=== PATIENT | male | born 1960 | race Asian ===

== ENCOUNTER 2016-08-31 08:14 | Day surgery (SDC) | payer OTHER ==
[~2016-08-31] VITALS: Ht 165.1 cm; Wt 65.8 kg
[~2016-08-31 08:14] MED LIST: ASPI-664 PO; IBUP-1542 PO; OMEP40CA6 PO; TRAM50TA2 PO
[2016-08-31 09:21] VITALS: Ht 165.1 cm; Wt 65.8 kg
[2016-08-31] MEDS ORDERED: ZANTAC (09:25)
[2016-08-31 09:39] VITALS: BP 132/79; PULSE 55; RESP 27
[2016-08-31] MEDS ORDERED: FENTAnyl 50 MCG/ML VIAL ONE (10:20)
[2016-08-31] MEDS ORDERED: MIDAZOLAM 1 MG/ML 2 ML INJ ONE ×2 (10:20)
[2016-08-31 10:40] VITALS: BP 105/69; PULSE 58; RESP 21
--- NOTE | 2016-08-31 10:57 | GILP ---
DATE OF PROCEDURE: NAME OF PROCEDURES: 1. Esophagogastroduodenoscopy and biopsy. 2. Colonoscopy and biopsy. SURGEON: Lynda Velazquez MD PREOPERATIVE DIAGNOSES: 1. Abdominal pain. 2. Screening colonoscopy. POSTOPERATIVE DIAGNOSES 1. Gastritis with erosions. 2. Gastric mucosal biopsies were taken for Helicobacter pylori test. 3. Colonoscopy all the way to the cecum. 4. Right colon polyp was removed using the biopsy forceps. 5. Internal hemorrhoids. INDICATION FOR THE PROCEDURE: Mr. Jeancarlos Lopez is a 56-year-old male patient who had upper ab dominal pain, not responding to therapy. He also needed screening colonoscopy. The procedures and possible complications are well explained to the patient, he understood and conse nted to the procedure. DESCRIPTION OF PROCEDURE: Under the influence of fentanyl and Versed, the gastroscope was carefully introduced into the esophagus and under direct vision, it was advanced to the stomach and through t he pylorus into the duodenal bulb and descending duodenum. FINDINGS: ESOPHAGUS: The mucosa was normal. STOMACH: The patient had gastritis with erosions. Gastric mucosal biopsies were taken for H. pylor i test. DUODENUM: Normal. The colonoscope was carefully introduced in the rectum and under direct vision, it was advanced all the way to the cecum. FINDINGS: The patient had a small polyp in the right colon and it was removed using the biopsy forc eps. The patient was noted to have internal hemorrhoids. He tolerated the procedures very well and there was no complication from the procedures. At the end of the procedures, he was awake with stable vital signs and he was discharged home to the care of h is family. IMPRESSION: 1. Gastritis with erosions. 2. Gastric mucosal biopsies were taken for Helicobacter pylori test. 3. Small right colon polyp was removed using the biopsy forceps. 4. Internal hemorrhoids. PLAN: 1. Continue omeprazole and Zantac. 2. Await histopathology reports. 3. Next screening colonoscopy in 5 to 10 years depending upon histopathology of colon polyps. Dictated By: LYNDA AVALOS/ISABEL Conf#: [id number] DID#: [id number]
== END 2016-08-31 11:12 | disposition home or self-care (01) ==
LOC: GIL 08:14
PROVIDERS: ATTEND Internal Medicine Gastroenterology
DX: Z12.11 Encounter for screening for malignant neoplasm of colon (principal); K63.5 Polyp of colon; K29.60 Other gastritis without bleeding; K64.8 Other hemorrhoids
CPT/HCPCS: 43239; 45380; 87081; 88305; J2250; J3010; Z7610

== ENCOUNTER 2017-03-12 10:07 | Emergency (ER) | payer OTHER ==
[~2017-03-12] VITALS: Ht 167.6 cm; Wt 70.5 kg
[~2017-03-12 10:07] MED LIST changes: -IBUP-1542 PO; -TRAM50TA2 PO; +ZANTAC
[2017-03-12 10:10] VITALS: Ht 167.6 cm; Wt 70.5 kg
[2017-03-12] MEDS ORDERED: MENT2.7L MM (10:57)
[2017-03-12] MEDS ORDERED: SODI126M NASAL (10:57)
--- NOTE | 2017-03-12 11:46 | ERD ---
ER Documentation Chief Complaint Date/Time DATE: 03/12/17 TIME: 11:41 Chief Complaint micki cough x 6 days HPI 56-year-old male is complaining of nonproductive cough 6 days. Patient has nasal congestion, with clear nasal discharge. He also complains of sore throat. Denies fever or chills. Denies shortness of breath. Denies itchy nose or itchy and watery eyes. Taken DayQuil without much improvement. ROS All systems reviewed and are negative except as per history of present illness. Medications Home Meds Active Scripts Sodium Chloride (Saline Nasal Mist) 126 Ml Mist, 2 SPRAY NASAL Q2H Y for NASAL CONGESTION, #1 BOTTLE Prov:RUPA KNOX. LEGISLATORS 03/12/17 Menthol (COUGH DROPS) 2.7 Mg Lozenge, 2.7 MG MM q1-2 hrs Y for COUGH, #30 LOZENGE Prov:RUPA KNOX. LEGISLATORS 03/12/17 Aspirin* (Aspirin* EC) 81 Mg Tablet., 81 MG PO DAILY, #30 TAB Prov:CALIXTO VELAZQUEZ MD 03/16/14 Reported Medications [Zantac] No Conflict Check 08/31/16 Omeprazole* (Omeprazole*) 40 Mg Capsule.dr, 40 MG PO DAILY, CAP 03/14/14 Allergies Allergies: Coded Allergies: No Known Allergy (Unverified , 12/22/14) PMhx/Soc GERD History of Surgery: No Anesthesia Reaction: No Hx Neurological Disorder: No Hx Respiratory Disorders: No Hx Cardiac Disorders: No Hx Psychiatric Problems: No Hx Miscellaneous Medical Probl: No Hx Alcohol Use: No Hx Substance Use: No Hx Tobacco Use: No Smoking Status: Never smoker Physical Exam Vitals Vital Signs Date Time Temp Pulse Resp B/P Pulse Ox O2 Delivery O2 Flow Rate FiO2 03/12/17 10:10 97.7 66 19 124/81 97 Physical Exam General: Well-developed, well-nourished, conscious and coherent, in no distress Skin: Warm and dry without rash, good texture and turgor Head: Normocephalic without evidence of trauma Eyes: Sclera and conjunctivae normal; pupils equal, round, and reactive to light; extraocular movements are intact Nose/Face: Nasal mucosa erythematous and swollen. Mouth/throat: Mucous membranes are moist. Posterior pharynx mildly erythematous without exudates Neck: Supple without meningismus or adenopathy. Carotids are equal. Trachea midline. No bruits or JVD Chest: Normal AP diameter. Good expansion without retractions. Nontender. Lungs are clear to auscultate bilaterally with good tidal volume Heart: Regular rate and rhythm. No murmur, rub, or gallops heard Extremities: Full range of motion. Good strength bilaterally. No clubbing, cyanosis, or edema. Peripheral pulses are intact. Sensation intact Neuro: Alert and oriented 4, GCS 15. Cranial nerves grossly intact. Motor and sensory exams nonfocal. Moves all extremities. Speech clear. Gait normal Procedures/MDM Patient is afebrile, in no respiratory distress. Lungs are clear to auscultate. I doubt that patient has pneumonia or bronchitis. Likely patient's symptoms are result of viral upper respiratory infection. Patient appears well, stable for discharge and outpatient management. Medical decision making shared with patient and family. Education provided to patient and family. Patient and family expressed understanding of the plan. Medications on discharge: Saline nasal spray, cough drops, Tylenol. Follow-up: Primary care provider in 2-3 days or return to ED if worse. Disclaimer: Inadvertent spelling and grammatical errors are likely due to EHR/ dictation software use and do not reflect on the overall quality of patient care. Also, please note that the electronic time recorded on this note does not necessarily reflect the actual time of the patient encounter. Departure Diagnosis: Primary Impression: URI (upper respiratory infection) Condition: Stable Patient Instructions: Adult Self-Care for Colds Additional Instructions: Call your primary care doctor TOMORROW for an appointment during the next 2-3 days.See the doctor sooner or return here if your condition worsens before your appointment time. RUPA KNOX NP Mar 12, 2017 11:46
== END 2017-03-12 11:40 | disposition home or self-care (01) ==
LOC: FTE 10:07
DX: J06.9 Acute upper respiratory infection, unspecified (principal); Z79.82 Long term (current) use of aspirin
CPT/HCPCS: 99283

== ENCOUNTER 2017-04-09 10:53 | Emergency (ER) | payer OTHER ==
[~2017-04-09] VITALS: Wt 78.0 kg
[~2017-04-09 10:53] MED LIST changes: +MENT2.7L MM; +SODI126M NASAL
--- NOTE | 2017-04-09 13:13 | RADRPT ---
PROCEDURE: Chest x-ray CLINICAL INDICATION: Cough TECHNIQUE: Chest single view COMPARISON: 03/14/2014 FINDINGS: The heart is normal in size. The pulmonary vessels are normal in caliber. The lungs are clear. Th e costophrenic angles are sharp. The visualized bony thorax is unremarkable. IMPRESSION: No acute cardiopulmonary disease. No interval change RPTAT: HH .Valentin Garza MD, Date Time Electronically viewed and signed by .Valentin Garza MD, MD on 04/09/2017 13:12 .W/
[2017-04-09] MEDS ORDERED: BENZ200C43 PO (13:31)
--- NOTE | 2017-04-09 18:35 | ERD ---
ER Documentation Chief Complaint Chief Complaint COUGH 1 1/2 MOS HPI Patient is a 57-year-old male presenting to the emergency department with complaints of cough intermittently for 1.5 months. He initially had the flu which turned into a cough. He took [id number] medications with no relief. Cough is productive. He denies hemoptysis. The patient did visit his primary care physician for this who prescribed him Medrol Dosepak and Ventolin with only mild relief. He denies recent travel, exposure to TB, night sweats, fevers, chills or other symptoms at this time ROS All systems reviewed and are negative except as per history of present illness. Medications Home Meds Active Scripts Benzonatate* (Benzonatate*) 200 Mg Capsule, 200 MG PO TID Y for COUGH, #20 CAP Prov:CALIXTO RICHARDSON PA-C 04/09/17 Sodium Chloride (Saline Nasal Mist) 126 Ml Mist, 2 SPRAY NASAL Q2H Y for NASAL CONGESTION, #1 BOTTLE Prov:RUAP KNOX. MASS SPECTROMETRY SPECIALIST 03/12/17 Menthol (COUGH DROPS) 2.7 Mg Lozenge, 2.7 MG MM q1-2 hrs Y for COUGH, #30 LOZENGE Prov:RUPA KNOX. MASS SPECTROMETRY SPECIALIST 03/12/17 Aspirin* (Aspirin* EC) 81 Mg Tablet., 81 MG PO DAILY, #30 TAB Prov:CALIXTO VELAZQUEZ MD 03/16/14 Reported Medications [Zantac] No Conflict Check 08/31/16 Omeprazole* (Omeprazole*) 40 Mg Capsule., 40 MG PO DAILY, CAP 03/14/14 Allergies Allergies: Coded Allergies: No Known Allergy (Unverified , 12/22/14) PMhx/Soc History of Surgery: No Anesthesia Reaction: No Hx Neurological Disorder: No Hx Respiratory Disorders: No Hx Cardiac Disorders: No Hx Psychiatric Problems: No Hx Miscellaneous Medical Probl: No Hx Alcohol Use: No Hx Substance Use: No Hx Tobacco Use: No Physical Exam Vitals Vital Signs Date Time Temp Pulse Resp B/P Pulse Ox O2 Delivery O2 Flow Rate FiO2 04/09/17 10:57 98.1 83 18 123/ 96 Physical Exam Const: Nontoxic, well-appearing male in no acute distress. Head: Atraumatic Eyes: Normal Conjunctiva ENT: Normal External Ears, Nose and Mouth. Neck: Full range of motion..~ No meningismus. Resp: Clear to auscultation bilaterally. No crackles. No wheezing. No rhonchi. Cardio: Regular rate and rhythm, no murmurs Skin: No petechiae or rashes Neur: Awake and alert Psych: Normal Mood and Affect Procedures/MDM 57-year-old male presents to the emergency department with complaints of cough. Physical examination was essentially unremarkable. Vital signs are stable. Patient is in no respiratory distress. Auscultation of the lungs essentially unremarkable. Patient's cough is likely secondary to chronic cause. Low suspicion for pneumonia, pulmonary embolism, pneumothorax, aortic dissection, or other cardiopulmonary emergencies. Chest x-ray showed no acute abnormalities. Patient is stable for discharge with prescription for benzonatate. He was advised to follow-up with his primary care physician with possible referral to specialist. He is advised to return immediately for any new or worsening symptoms. PROCEDURE: Chest x-ray CLINICAL INDICATION: Cough TECHNIQUE: Chest single view COMPARISON: 03/14/2014 FINDINGS: The heart is normal in size. The pulmonary vessels are normal in caliber. The lungs are clear. The costophrenic angles are sharp. The visualized bony thorax is unremarkable. IMPRESSION: No acute cardiopulmonary disease. No interval change RPTAT: HH .Valentin Garza MD, MD Date Time Electronically viewed and signed by .Valentin Garza MD, on 04/09/2017 13:12 Departure Diagnosis: Primary Impression: Cough Condition: Fair Patient Instructions: Cough, Chronic, Uncertain Cause, (Adult) Additional Instructions: Follow up with your PCP within the next 1-3 days for a repeat evaluation. If you require a referral to a specialist, your Primary Care Provider may be able to provide this for you. In most patient cases, a referral is not required. If you have further questions regarding this matter, please ask your Primary Care Provider. Return the the emergency department immediately if symptoms worsen or change. If you have any questions regarding medications, ask your pharmacist or us before you leave. If any adverse reactions, occur while taking your medications, discontinue the treatment and return to the emergency department immediately. If any new or worsening symptoms, uncontrolled fevers, or other unexplained symptoms occur, return to the emergency department immediately. Take your medications as directed, and complete the entire course of treatment. CALIXTO RICHARDSON PA-C Apr 09, 2017 18:35
== END 2017-04-09 13:48 | disposition home or self-care (01) ==
LOC: FTE 10:53
DX: R05 Cough (principal); Z79.82 Long term (current) use of aspirin
CPT/HCPCS: 71010; Z7502

== ENCOUNTER 2017-06-11 07:59 | Inpatient (IN) | payer OTHER ==
[~2017-06-11] VITALS: Ht 160 cm; Wt 67.1 kg
[~2017-06-11 07:59] MED LIST changes: +BENZ200C43 PO
--- NOTE | 2017-06-11 08:36 | ERD ---
ER Documentation Chief Complaint Chief Complaint COUGH X 3 MONTHS (SERGIO DOSHI PA-C) HPI Patient is a 57-year-old male with no past medical history presents to the ED for concerns of a chronic cough 3 months. Patient states the cough is dry in nature. Patient denies any fevers, chills, nausea, vomiting, chest pain, shortness of breath or LOC. Patient denies any weight loss, hemoptysis or sputum production. 2 months ago the patient did travel to [facility] where he tried numerous antibiotics and cough syrups which have not alleviated to his symptoms. Patient does not smoke. Patient denies any epigastric pain or heartburn sensation. (SERGIO DOSHI PA-C) ROS All systems reviewed and are negative except as per history of present illness. (SERGIO DOSHI PA-C) Medications Home Meds Active Scripts Benzonatate* (Benzonatate*) 200 Mg Capsule, 200 MG PO TID Y for COUGH, #20 CAP Prov:CALIXTO RICHARDSON PA-C 04/09/17 Sodium Chloride (Saline Nasal Mist) 126 Ml Mist, 2 SPRAY NASAL Q2H Y for NASAL CONGESTION, #1 BOTTLE Prov:RUPA KNOX. CERTIFIED PERFORMANCE TECHNOLOGIST 03/12/17 Menthol (COUGH DROPS) 2.7 Mg Lozenge, 2.7 MG MM q1-2 hrs Y for COUGH, #30 LOZENGE Prov:RUPA KNOX. CERTIFIED PERFORMANCE TECHNOLOGIST 03/12/17 Aspirin* (Aspirin* EC) 81 Mg Tablet., 81 MG PO DAILY, #30 TAB Prov:CALIXTO VELAZQUEZ MD 03/16/14 Reported Medications Alprazolam* (Alprazolam*) 0.5 Mg Tablet, 0.5 MG PO IN THE MORNING Y for ANXIETY , TAB 06/12/17 [Zantac] No Conflict Check 08/31/16 Omeprazole* (Omeprazole*) 40 Mg Capsule., 40 MG PO DAILY, CAP 03/14/14 Allergies Allergies: Coded Allergies: No Known Allergy (Unverified , 12/22/14) PMhx/Soc History of Surgery: No Anesthesia Reaction: No Hx Neurological Disorder: No Hx Respiratory Disorders: No Hx Cardiac Disorders: No Hx Psychiatric Problems: No Hx Miscellaneous Medical Probl: No Hx Alcohol Use: No Hx Substance Use: No Hx Tobacco Use: No (SERGIO DOSHI PA-C) Physical Exam Vitals Vital Signs Date Time Temp Pulse Resp B/P Pulse Ox O2 Delivery O2 Flow Rate FiO2 06/11/17 13:18 68 17 139/84 98 Room Air 06/11/17 11:04 74 17 132/93 97 Room Air 06/11/17 08:02 97.7 75 18 109/77 97 (ROSALIA PATTERSON DO) Physical Exam GENERAL: Well-developed, well-nourished male. Appears in no acute distress. HEAD: Normocephalic, atraumatic. EYES: Pupils are equally reactive bilaterally. EOMs grossly intact. No conjunctival erythema. ENT: Moist mucous membranes. No uvula deviation. No kissing tonsils. NECK: Supple. No meningismus. Normal range of motion of the neck. LUNG: Clear to auscultation bilaterally. No rhonchi, wheezing, rales or coarse breath sounds. No abdominal retractions, nasal flaring, no tripoding. HEART: Regular rate and rhythm. No murmurs, rubs or gallops. EXTREMITIES: Equal pulses bilaterally. No peripheral clubbing, cyanosis or edema. No unilateral leg swelling. NEUROLOGIC: Alert and oriented. Moving all four extremities without any difficulty. Normal speech. Steady gait. SKIN: Normal color. Warm and dry. No rashes or lesions. (SERGIO DOSHI PA-C) Result Diagram: 06/12/17 0652 06/12/17 0652 Results 24 hrs Laboratory Tests Test 06/11/17 11:00 White Blood Count 8.410^3/ul Red Blood Count 4.2710^6/ul Hemoglobin 13.3g/dl Hematocrit 40.3% Mean Corpuscular Volume 94.4fl Mean Corpuscular Hemoglobin 31.1pg Mean Corpuscular Hemoglobin Concent 33.0g/dl Red Cell Distribution Width 11.8% Platelet Count 29727^3/UL Mean Platelet Volume 9.9fl Neutrophils % 66.5% Lymphocytes % 20.6% Monocytes % 7.1% Eosinophils % 4.6% Basophils % 0.8% Nucleated Red Blood Cells % 0.0/100WBC Neutrophils # 5.610^3/ul Lymphocytes # 1.710^3/ul Monocytes # 0.610^3/ul Eosinophils # 0.410^3/ul Basophils # 0.110^3/ul Nucleated Red Blood Cells # 0.010^3/ul Sodium Level 141mmol/L Potassium Level 3.9mmol/L Chloride Level 106mmol/L Carbon Dioxide Level 26mmol/L Anion Gap 13 Blood Urea Nitrogen 14mg/dl Creatinine 0.90mg/dl Glucose Level 97mg/dl Calcium Level 9.2mg/dl Total Bilirubin 0.3mg/dl Direct Bilirubin 0.00mg/dl Indirect Bilirubin 0.3mg/dl Aspartate Amino Transf (AST/SGOT) 34IU/L Alanine Aminotransferase (ALT/SGPT) 47IU/L Alkaline Phosphatase 74IU/L Total Protein 7.5g/dl Albumin 3.7g/dl Globulin 3.80g/dl Albumin/Globulin Ratio 0.97 (ROSALIA PATTERSON DO) Procedures/MDM ED COURSE: The patient was stable throughout ED course. I kept the patient and/or family informed of laboratory and diagnostic imaging results throughout the ED course. DIAGNOSTIC IMAGING: Read by radiologist. Patient: MARVIN MORA : 1960 Age: 57 Sex: M MR #: [id number] DOS: 06/11/17 0825 Ordering MD: SERGIO DOSHI PA-C Location: [facility] Room/Bed: AMENDMENT: 06/11/2017 9:49:08 AM Julianne Murphy due to typographical error. The ascending aorta measures up to 4.1 cm in the greatest dimension and the posterior aortic arch measures up to 3.5 cm of its greatest dimension. A call report was made to Sergio Doshi Pa-C at 06/11/2017 9:49:05 AM PROCEDURE: CT chest without contrast. CLINICAL INDICATION: Cough TECHNIQUE: CT scan of the chest without contrast was performed on a multi- slice CT scanner. The patient was scanned without administration of intravenous contrast. Coronal and sagittal reformatted images were obtained from the axial source images. One or more of the following dose reduction techniques were used: Automated exposure control. Adjustment of the mA and/or kV according to patient size. Use of iterative reconstruction technique. DICOM images are available DLP vol 468.47 mGy CTDI 11.1 mGy-cm COMPARISON: None. FINDINGS: Lungs: There is a focus of peribronchial nodular ground-glass opacity seen within the lateral left lung base. The remainder of the lungs are otherwise clear. There is a focus of bronchiectasis seen within the right middle lobe near the base. Trace basilar scarring is present. There is no effusion or pneumothorax. Cardiovascular: There is ascending aortic aneurysmal enlargement measuring 4.2 cm. There is also an area of aneurysmal enlargement of the posterior aortic arch that measures 73.5 5 cm. Lymph nodes: There are no enlarged axillary or mediastinal lymph nodes. Musculoskeletal: Degenerative changes are seen within the thoracic spine and shoulders with no acute osseous abnormality. Upper abdomen: There is no acute upper abdominal abnormality. Other: None IMPRESSION: Peribronchial nodular opacities seen in the left lower lobe that likely represents a focus of bronchiolitis. Fungal disease are mycobacterium could be included in the differential for this. There is a small focus of right middle lobe basilar bronchiectasis which could represent sequelae of prior inflammation. There is aneurysmal enlargement of the ascending aorta and the posterior aortic arch. RPTAT: AA .Julianne Kang MD, MD Date Time Electronically viewed and signed by .Julianne Kang MD, MD on 06/11/2017 09:49 .J/ CC: SERGIO DOSHI PA-C PROCEDURES: None. MEDICAL DECISION MAKING: This is a 49-year-old male who presents ED for concerns of a chronic cough 3 months. Patient has been here numerous times for his cough. Patient states he started numerous antibiotics as well as OTC medications with no alleviation of his cough. Patient did recently travel to [facility]. Patient denies any weight loss, night sweats, hemoptysis, sputum production, fevers or chills. Vital signs were reviewed. Patient was afebrile. Patient was not hypoxic. ENT exam was normal. Lung exam was normal. Given the patient has had numerous negative chest x-rays, CT scan of the chest was obtained. CT chest showed Peribronchial nodular opacities seen in the left lower lobe that likely represents a focus of bronchiolitis. Fungal disease are mycobacterium could be included in the differential for this. There is a small focus of right middle lobe basilar bronchiectasis which could represent sequelae of prior inflammation. There is aneurysmal enlargement of the ascending aorta and the posterior aortic arch. I discussed the patient's case and imaging studies with my supervising physician Dr. Patterson, who advised me to order blood work in the patient. CBC showed no evidence of systemic infection or severe anemia. CMP showed no evidence of electrolyte abnormalities, severe acidosis, alkalosis, renal failure , or liver disease. Given that patient did report travel to [facility], QuantiFERON gold TB screening was also ordered. Results are pending. Pertussis swab was also sent. Results pending. Patient was transferred to the ED 1 for further management and isolation precautions. Given patient's history of recent foreign travel and ongoing cough, patient will be admitted at this time to rule out TB given concerns on CT imaging. Dr. Patterson, supervising MD spoke with admitting physician/team. Patient was stable throughout the ED course. Disclaimer: Inadvertent spelling and grammatical errors are likely due to EHR/ dictation software use and do not reflect on the overall quality of patient care. Also, please note that the electronic time recorded on this note does not necessarily reflect the actual time of the patient encounter. (SERGIO DOSHI PA-C) Patient was moved to ED 1 and in isolation for possible Mycobacterium. Spoke with Dr. Leonel Jane will admit the patient for TB rule out. Condition: Stable Disposition: Admission: Diagnosis chronic cough, fungal or mycobacterium pulmonary infection (ROSALIA PATTERSON DO) Departure Diagnosis: Primary Impression: Cough Condition: Stable Patient Instructions: Cough, Chronic, Uncertain Cause, (Adult) Referrals: CAROLE GRANDE (PCP) ROBBIE ALAS MD,TARA MATSON,SULTANA COPPOLA MD, MD, SAEID MD VADGAMA,AMY Diehl MD, [facility] Additional Instructions: Follow-up with the heater worker on an outpatient basis. Pertussis swab pending. He will be contacted if it is positive. Call your primary care doctor TOMORROW for an appointment during the next 1-2 days.See the doctor sooner or return here if your condition worsens before your appointment time. SERGIO DOSHI PA-C Jun 11, 2017 08:36 ROSALIA PATTERSON DO Jun 11, 2017 14:01
--- NOTE | 2017-06-11 09:28 | RADRPT ---
AMENDMENT: 06/11/2017 9:49:08 AM Julianne Murphy due to typographical error. The ascending aorta measures up to 4.1 cm in the greatest dimension and the posterior aortic arch measures up to 3.5 cm of its greatest dimension. A call report was made to Pastora Doshi Pa-C at 06/11/2017 9:49:05 AM PROCEDURE: CT chest without contrast. CLINICAL INDICATION: Cough TECHNIQUE: CT scan of the chest without contrast was performed on a multi-slice CT scanner. [facility] of [facility] contrast. Coronal and sagittal reformatted images were obtained from the axial source images. One or more of the following dose reduction techniques were used: Automated exposure control. Adjustment of the mA and/or kV according to patient size. Use of iterative reconstruction technique. DICOM images are available DLP vol 468.47 mGy CTDI 11.1 mGy-cm COMPARISON: None. FINDINGS: Lungs: There is a focus of peribronchial nodular ground-glass opacity seen within the lateral left l kay base. The remainder of the lungs are otherwise clear. There is a focus of bronchiectasis seen wi thin the right middle lobe near the base. Trace basilar scarring is present. There is no effusion or pneumothorax. Cardiovascular: There is ascending aortic aneurysmal enlargement measuring 4.2 cm. There is also an area of aneurysmal enlargement of the posterior aortic arch that measures 73.5 5 cm. Lymph nodes: There are no enlarged axillary or mediastinal lymph nodes. Musculoskeletal: Degenerative changes are seen within the thoracic spine and shoulders with no acute osseous abnormality. Upper abdomen: There is no acute upper abdominal abnormality. Other: None IMPRESSION: Peribronchial nodular opacities seen in the left lower lobe that likely represents a focus of bronch iolitis. Fungal disease are mycobacterium could be included in the differential for this. There is a small focus of right middle lobe basilar bronchiectasis which could represent sequelae of prior inflammation. There is aneurysmal enlargement of the ascending aorta and the posterior aortic arch. RPTAT: AA .Julianne Kang MD, Date Time Electronically viewed and signed by .Julianne Kang MD, MD on 06/11/2017 09:49 .Elian/
[2017-06-11 12:00] LABS: BASOPHIL # 0.1 10^3/ul (0.0-0.1); BASOPHILS % 0.8 % (0.0-2.0); EOSINOPHILS # 0.4 10^3/ul (0.0-0.5); EOSINOPHILS % 4.6 % (0.0-7.0); HEMATOCRIT 40.3 % (42.0-52.0); HEMOGLOBIN 13.3 g/dl (14.0-18.0); LYMPHOCYTES # 1.7 10^3/ul (0.8-2.9); LYMPHOCYTES % 20.6 % (15.0-51.0); MEAN CORPUSCULAR HEMOGLOBIN 31.1 pg (29.0-33.0); MEAN CORPUSCULAR VOLUME 94.4 fl (82.0-101.0); MEAN PLATELET VOLUME 9.9 fl (7.4-10.4); MONOCYTE # 0.6 10^3/ul (0.3-0.9); MONOCYTES % 7.1 % (0.0-11.0); NEUTROPHIL # 5.6 10^3/ul (1.6-7.5); NEUTROPHILS % 66.5 % (39.0-77.0); PLATELET COUNT 213 10^3/UL (140-415); RED BLOOD COUNT 4.27 10^6/ul (4.70-6.10); RED CELL DISTRIBUTION WIDTH 11.8 % (11.5-14.5); WHITE BLOOD COUNT 8.4 10^3/ul (4.8-10.8)
[2017-06-11 12:35] LABS: ALBUMIN 3.7 g/dl (3.3-4.9); ALBUMIN/GLOBULIN RATIO 0.97; BILIRUBIN,INDIRECT 0.3 mg/dl (0-1.1); BILIRUBIN,TOTAL 0.3 mg/dl (0.2-1.3); CALCIUM 9.2 mg/dl (8.4-10.2); CREATININE 0.9 mg/dl (0.61-1.24); POTASSIUM 3.9 mmol/L (3.5-5.1); TOTAL PROTEIN 7.5 g/dl (6.1-8.1)
[2017-06-11] MEDS ORDERED: morphine 2 MG INJ IV PRN (14:30)
[2017-06-11] MEDS ORDERED: ALBUTEROL/IPRATROPIUM (NEB) 3 ML AMP HHN PRN (14:30)
[2017-06-11] MEDS ORDERED: NACL 0.9% 3 ML SYG IV SCH (14:30)
[2017-06-11] MEDS ORDERED: LORAZEPAM 0.5 MG TAB PO PRN (14:30)
[2017-06-11] MEDS ORDERED: ONDANSETRON 4 MG INJ IV PRN (14:30)
[2017-06-11] MEDS ORDERED: BISACODYL (EC) 5 MG TAB PO PRN (14:30)
[2017-06-11] MEDS ORDERED: LEVOFLOXACIN 500MG/D5W (PMX) 100 ML IVPB SCH (14:30)
[2017-06-11] MEDS ORDERED: ACETAMINOPHEN 325 MG TAB PO PRN (14:30)
--- NOTE | 2017-06-11 14:35 | HP ---
Date/Time of Note Date/Time of Note DATE: 06/11/17 TIME: 14:22 Assessment/Plan VTE Prophylaxis VTE Prophylaxis Intervention: heparin, SCD's Assessment/Plan Chief Complaint/Hosp Course Objective Physical exam General: Patient is laying in bed and answers questions appropriately Mentation: Patient is alert and oriented 4, Head: Normocephalic atraumatic Eyes: EOMI, pupils reactive to light Neck: Supple, nontender, midline Respiratory: Clear to auscultation bilaterally Cardiovascular: regular rate, no obvious murmurs Gastrointestinal: non-tender to palpation, bowel sounds heard. Neurological: Moves all extremities spontaneously Skin: No new skin lesions Assessment and plan Cough -Peribronchial nodular opacities per CT, fungal versus Mycobacterium -Patient admitted for TB rule out -We will start Levaquin, ID has been consulted -Pulmonology has also been consulted -Bronchiolitis, duo nebs for now -QuantiFERON and AFB pending Aortic aneurysm -Incidental finding, will order CT angiography for better studies Disposition -Pending ID and pulmonology consult, TB precautions. Problems: HPI/ROS Admit Date/Time Admit Date/Time Hx of Present Illness Patient is a 57-year-old [facility] male who presents with a 3-1/2 month history of cough. Patient states that this started out of nowhere and patient stated that he initially got antibiotic such as azithromycin approximately 3 and half months ago by his family practitioner. Patient took medication and the cough did not resolve. Since that time patient also went to [facility] where the cough continued and he also saw a practitioner in [facility] and was given additional antibiotics with no resolution of cough. Patient denies any purulent sputum and denies any hemoptysis. Patient states that there is no difference between night and day of chronic cough nor it being inside or outside. Patient denies being sick at this time and has no acute complaints. Patient denies chest pain, shortness breath, nausea, vomiting, abdominal pain, debility. PMH: None PSH: None Social: Denies smoking drinking or drugs Meds: None PMH/Family/Social Social History Smoking Status: Never smoker Exam/Review of Systems Vital Signs Vitals Vital Signs Date Time Temp Pulse Resp B/P Pulse Ox O2 Delivery O2 Flow Rate FiO2 06/11/17 13:18 68 17 139/84 98 Room Air 06/11/17 08:02 97.7 Labs Result Diagram: 06/11/17 1100 06/11/17 1100 Medications Medications Current Medications Lorazepam (Ativan) 0.5 mg Q8H PRN PO ANXIETY; Start 06/11/17 at 14:30; Status UNV Ondansetron HCl (Zofran Inj) 4 mg Q6H PRN IV NAUSEA AND/OR VOMITING; Start at 14:30; Status UNV Acetaminophen (Tylenol Tab) 650 mg Q6H PRN PO PAIN LEVEL 1-3 OR FEVER; Start 06/11/17 at 14:30; Status UNV Acetaminophen/ Hydrocodone Bitart ([place] (5/325)) 1 tab Q6H PRN PO PAIN LEVEL 4 -6; Start 06/11/17 at 14:30; Status UNV Morphine Sulfate (morphine) 2 mg Q4H PRN IV PAIN LEVEL 7-10; Start 06/11/17 at 14:30; Status UNV Bisacodyl (Dulcolax) 5 mg DAILY PRN PO CONSTIPATION; Start 06/11/17 at 14:30; Status UNV Heparin Sodium (Porcine) 5000 unit 5,000 unit Q8 SC ; Start 06/11/17 at 22:00; Status UNV Levofloxacin/ Dextrose (Levaquin 500mg/ D5W 100 ml (Pmx)) 100 ml @ 100 mls/hr Q24H IVPB ; Start 06/11/17 at 14:30; Status UNV MORA FELICIANO Jun 11, 2017 14:34
[2017-06-11] MEDS ORDERED: LEVOFLOXACIN 500MG/D5W (PMX) 100 ML IVPB ONE (14:36)
[2017-06-11] MEDS ORDERED: SOD CHLORIDE 0.9% 100 ML ONE (14:38)
[2017-06-11] MEDS ORDERED: IOHEXOL 100 ML ONE (14:38)
[2017-06-11 15:50] VITALS: TEMP 98.8
[2017-06-11 16:15] VITALS: Ht 160 cm; Wt 67.1 kg
[2017-06-11 19:35] VITALS: BP 103/72; PULSE 81; RESP 20
--- NOTE | 2017-06-11 20:38 | CONS ---
DATE OF ADMISSION: 06/11/2017 DATE OF CONSULTATION: 06/11/2017 TYPE OF CONSULTATION: Infectious Disease. REASON FOR CONSULTATION: Antibiotic management. HISTORY OF PRESENT ILLNESS: Jeancarlos Lopez is a 57-year-old male from [facility] who presents w ith a 3-1/2 month history of cough. The patient initially was on antibiotics such as azithromycin a pproximately 3-1/2 months ago by his family practitioner. The cough; however, did not resolve. He also went to [facility] where the cough continued and saw the practitioner and was given additional antibiotics with no resolution of cough. The patient denies purulent sputum. He does not feel sick , has no acute complaints. He denies debility, abdominal pain. On admission, his white count is 8. 4, H and H of 13.3 and 40.3, platelet count 213,000. BUN and creatinine 14/0.9, glucose of 97. PAST MEDICAL HISTORY: Operations: None. FAMILY HISTORY: Noncontributory. SOCIAL HISTORY: He does not smoke, drink or abuse drugs. ALLERGIES: NONE TO PENICILLIN, SULFA OR FOODS. MEDICATIONS: Per chart. REVIEW OF SYSTEMS: Noncontributory. PHYSICAL EXAMINATION: GENERAL: The patient is a well-developed, well-nourished male who is alert, responsive, in no acute distress. VITAL SIGNS: Stable. He is afebrile. SKIN: Without generalized rash. HEENT: Within normal limits. NECK: Supple. LYMPH NODES: None palpable. LUNGS: Clear. Decreased breath sounds at the bases. HEART: Without murmur or gallop. ABDOMEN: Soft, nontender, without organosplenomegaly or masses. EXTREMITIES: Without cyanosis, clubbing, or edema. RECTAL AND GENITAL: Deferred. NEUROLOGIC: No focal neurological abnormalities. As noted, his white count was 8.[address] scan of the chest was performed. IMPRESSION: Peribronchial nodular opacities seen in the left lower lobe that likely represent bronc hiolitis. Fungal disease or mycobacterium could be included in the differential for this. There is a small focus of right middle lobe basilar bronchiectasis which could represent sequelae of prior in flammation. There is aneurysmal enlargement of the ascending aorta and posterior aortic arch. IMPRESSION AND PLAN: Patient was started on Levaquin. AFB cultures and smears were ordered. A Maxime ntiFERON Gold was ordered. I think we will switch him over to cefepime since he has been on multipl e antibiotics in the past and so far have not been effective. In addition, if it was ordered, will get regular culture of the sputum. I will dictate my findings to the hospitalist. Dictated By: LUIS ANGEL GRESHAM MD, JD/ISABEL Conf#: [id number] DID#: [id number]
[2017-06-11] MEDS: CEFEPIME 1GM/50 ML (PMX) 50 ML IVPB SCH (20:50)
[2017-06-11] MEDS: HEPARIN 5,000 UNIT/0.5 ML VIAL SC SCH (21:41)
[2017-06-11] MEDS: HYDROCODONE/APAP (5/325) TAB PO PRN (21:44)
[2017-06-11] MEDS: ALBUTEROL/IPRATROPIUM (NEB) 3 ML AMP HHN SCH (21:59)
--- NOTE | 2017-06-11 22:13 | RADRPT ---
PROCEDURE: CTA Chest CLINICAL INDICATION: Aortic aneurysm. TECHNIQUE: CTA chest was performed on a multidetector high-resolution CT scanner. The patient was examined following the uncomplicated intravenous administration of 100 cc of Omnipaque 350. High-res olution thin slice coronal and sagittal imaging was obtained from the axial source images. 3-D refor matted/MIP images were not created on a separate work station. The images were reviewed on a PACS w orkstation. DICOM images are available. One or more of the following dose reduction techniques were used: Automated exposure control. Adjustment of the mA and/or kV according to patient size. Use of iterative reconstruction technique. The total exam CTDI equals 57.35 mGy, and the total exam DLP equals 342.76 mGy-cm. COMPARISON: Same day prior CT. FINDINGS: CTA chest: There is aneurysmal dilatation of the sinus of Valsalva measuring 4.3 cm. There is ectasia of the as cending thoracic aorta extending into the aortic arch and proximal descending thoracic aorta. Proxim al descending thoracic aorta measures 3.6 cm. No aortic dissection. There are no filling defects or vascular cutoff to indicate pulmonary embolus. Pulmonary arteries ar e normal in size. CT chest: The heart is normal in size. No pericardial effusion. There is no pathologically enlarged mediastinal, hilar, or axillary lymph nodes by CT size criteria. There are a few nonspecific sub centimeter mediastinal lymph nodes. The central airways are patent. Stable nodular opacities noted in the left lower lobe. There is no pleural effusion. There is no pneumothorax. Images through the upper abdomen reveal no significant abnormalities. No suspicious or aggressive bone lesions. IMPRESSION: 1. 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 Ectasia of the remaining asce nding thoracic aorta extending into the aortic arch and proximal descending thoracic aorta. Proximal descending thoracic aorta measures 3.6 cm. No aortic dissection. 2. No evidence of pulmonary embolus. 3. Stable nodular opacities noted in the left lower lobe, likely infectious/inflammatory. RPTAT: [facility] Physician [place] Date Time Electronically viewed and signed by Alejandro Diop Physician on 06/11/2017 22:13 PH/
[2017-06-12] MEDS ORDERED: ALPR0.5T6 PO (00:49)
[2017-06-12 01:20] VITALS: BP 102/80; PULSE 80; RESP 18
[2017-06-12] MEDS: HEPARIN 5,000 UNIT/0.5 ML VIAL SC SCH ×3 (05:43→21:04)
[2017-06-12] MEDS: ALBUTEROL/IPRATROPIUM (NEB) 3 ML AMP HHN SCH ×3 (07:31→19:44)
[2017-06-12 07:32] LABS: BASOPHIL # 0.1 10^3/ul (0.0-0.1); EOSINOPHILS # 0.4 10^3/ul (0.0-0.5); HEMOGLOBIN 13.3 g/dl (14.0-18.0); LYMPHOCYTES # 2.5 10^3/ul (0.8-2.9); LYMPHOCYTES % 39.6 % (15.0-51.0); MEAN CORPUSCULAR HGB CONC 32.4 g/dl (32.0-37.0); MEAN CORPUSCULAR VOLUME 95.6 fl (82.0-101.0); MEAN PLATELET VOLUME 9.4 fl (7.4-10.4); MONOCYTE # 0.6 10^3/ul (0.3-0.9); MONOCYTES % 9.7 % (0.0-11.0); NEUTROPHIL # 2.7 10^3/ul (1.6-7.5); NEUTROPHILS % 42.5 % (39.0-77.0); PLATELET COUNT 227 10^3/UL (140-415); RED BLOOD COUNT 4.29 10^6/ul (4.70-6.10); RED CELL DISTRIBUTION WIDTH 11.9 % (11.5-14.5); WHITE BLOOD COUNT 6.3 10^3/ul (4.8-10.8)
[2017-06-12 07:36] VITALS: BP 104/74; PULSE 69; RESP 18
[2017-06-12 08:05] LABS: ALBUMIN 3.9 g/dl (3.3-4.9); ALBUMIN/GLOBULIN RATIO 1.11; BILIRUBIN,INDIRECT 0.5 mg/dl (0-1.1); BILIRUBIN,TOTAL 0.5 mg/dl (0.2-1.3); CALCIUM 9.2 mg/dl (8.4-10.2); CREATININE 1.19 mg/dl (0.61-1.24); MAGNESIUM 2.2 mg/dl (1.7-2.5); POTASSIUM 4.1 mmol/L (3.5-5.1); TOTAL PROTEIN 7.4 g/dl (6.1-8.1)
[2017-06-12] MEDS: CEFEPIME 1GM/50 ML (PMX) 50 ML IVPB SCH (08:27)
--- NOTE | 2017-06-12 11:37 | RADRPT ---
PROCEDURE: XR Chest. CLINICAL INDICATION: Positive PPD. TECHNIQUE: Single frontal view. COMPARISON: 03/14/2014. FINDINGS: The lungs are clear. The heart size is normal. There is no pleural effusion. There is no pneumothorax. IMPRESSION: 1. No evidence of active tuberculosis. 2. Normal chest radiograph. 3. No change from 03/14/2014. RPTAT: QQ .Isaías Moya MD, MD Date Time Electronically viewed and signed by .Isaías Moya MD, MD on 06/12/2017 11:36 .R/
--- NOTE | 2017-06-12 11:37 | CONS ---
Date/Time of Note Date/Time of Note DATE: 06/12/17 TIME: 11:30 Assessment/Plan Assessment/Plan Additional Assessment/Plan CT scan chest was reviewed from yesterday which is showing very scant minimal left lower lobe infiltrate. Assessment and recommendations; 1. Patient admitted with a 3-1/2 month history of cough with very scant yellow sputum production with very minimal left lower lobe infiltrate. The findings are consistent with likely postviral bronchitis/bronchopneumonia. 2. Symptoms of cough and preceded recent travel to [facility].. Pulmonary tuberculosis is unlikely. With 3-1/2 month history one would expect significant progression of the disease without treatment. Continue current treatment. PPD has been placed. QuantiFERON gold test has been ordered as well. At this time I would recommend adding Levaquin 500 mg IV daily with Solu-Medrol 40 mg IV every 8 hours at least for 48 hours. Consultation Date/Type/Reason Admit Date/Time Date of Consultation: Jun 12, 2017 Type of Consultation: Pulmonary Reason for Consultation Pulmonary consultation requested for evaluation of chronic cough as well as left lower lobe pneumonia. Next History of presenting any; patient is a pleasant 57-year-old male who was admitted to the hospital with complaints of cough going on for the last 3-1/2 months. According to the patient he was fine until 3-1/2 months ago when he started having a hacking cough which is not exacerbated or relieved by any factors. He complains of very scant yellow sputum production. Denies any hemoptysis. Patient also had fever a few weeks ago with interval resolution. Patient denies any wheezing, sinus symptoms. But does complain of chronic acid reflux. But according to him that is not contributing to his cough. He denies any weight loss. Any night sweats. After developing cough for the last 3 and half months patient also traveled to [facility] and stayed there for a month and a half. But according to the patient the cough preceded his departure. Past medical history; 1. No history of any medical illnesses. Other than gastroesophageal reflux disease. Medications; reviewed. Allergies; none. Social history; patient quit smoking more than 30 years ago. No history of any alcohol or drug abuse. Family history; patient is , he has 4 children. No history of any illnesses in the family. 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 Review systems; denies any headache, visual changes, seizures. Any sinus symptoms or postnasal drip. Denies any dysphagia, sore throat. Any wheezing. Complains of cough as outlined above. Denies any hemoptysis. Any chest pain. Any dyspnea on exertion. Denies any shortness of breath. Denies any abdominal pain, nausea vomiting. Complains of stable acid reflux for the last several years. Reflux symptoms are not associated with episodes of coughing. Denies any edema. Weight loss. Night sweats fever or chills. General exam; middle-aged male, awake alert, currently in no distress. Several episodes of coughing were observed. Social History Smoking Status: Never smoker Exam/Review of Systems Vital Signs Vitals Vital Signs Date Time Temp Pulse Resp B/P Pulse Ox O2 Delivery O2 Flow Rate FiO2 06/12/17 07:36 97.4 69 18 104/74 100 Room Air 06/12/17 07:31 21 Intake and Output 06/11/17 06/11/17 06/12/17 15:00 23:00 07:00 Intake Total 290 ml 1000 ml Output Total 1400 ml Balance 290 ml -400 ml Exam HEENT exam; supple neck, no JVD. No lymphadenopathy. Midline trachea. No thyromegaly. Pharynx is clear. Patient has good dentition. There is no sinus tenderness. Nasal passages are normal without any evidence of rhinitis. Chest exam; clear to auscultation. S1-S2 audible, no murmurs. Regular rhythm. Abdomen exam; soft, nontender. No organomegaly. Bowel sounds audible. Extremity exam; no edema. No clubbing. Pulses 2+ bilaterally. 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 Results Result Diagram: 06/12/17 0652 06/12/17 0652 Results 24 hrs Laboratory Tests Test 06/12/17 06:52 White Blood Count 6.3 # Red Blood Count 4.29 L Hemoglobin 13.3 L Hematocrit 41.0 L Mean Corpuscular Volume 95.6 Mean Corpuscular Hemoglobin 31.0 Mean Corpuscular Hemoglobin Concent 32.4 Red Cell Distribution Width 11.9 Platelet Count 227 Mean Platelet Volume 9.4 Neutrophils % 42.5 Lymphocytes % 39.6 Monocytes % 9.7 Eosinophils % 7.0 Basophils % 1.0 Nucleated Red Blood Cells % 0.0 Neutrophils # 2.7 Lymphocytes # 2.5 Monocytes # 0.6 Eosinophils # 0.4 Basophils # 0.1 Nucleated Red Blood Cells # 0.0 Sodium Level 140 Potassium Level 4.1 Chloride Level 104 Carbon Dioxide Level 27 Anion Gap 13 Blood Urea Nitrogen 17 Creatinine 1.19 Glucose Level 101 Calcium Level 9.2 Magnesium Level 2.2 Total Bilirubin 0.5 Direct Bilirubin 0.00 Indirect Bilirubin 0.5 Aspartate Amino Transf (AST/SGOT) 33 Alanine Aminotransferase (ALT/SGPT) 46 Alkaline Phosphatase 75 Total Protein 7.4 Albumin 3.9 Globulin 3.50 H Albumin/Globulin Ratio 1.11 Medications Medications Current Medications Lorazepam (Ativan) 0.5 mg Q8H PRN PO ANXIETY; Start 06/11/17 at 14:30 Ondansetron HCl (Zofran Inj) 4 mg Q6H PRN IV NAUSEA AND/OR VOMITING; Start at 14:30 Acetaminophen (Tylenol Tab) 650 mg Q6H PRN PO PAIN LEVEL 1-3 OR FEVER; Start 06/11/17 at 14:30 Acetaminophen/ Hydrocodone Bitart ([place] (5/325)) 1 tab Q6H PRN PO PAIN LEVEL 4 -6 Last administered on 06/11/17 21:44; Admin Dose 1 TAB; Start 06/11/17 at 14:30 Morphine Sulfate (morphine) 2 mg Q4H PRN IV PAIN LEVEL 7-10; Start 06/11/17 at 14:30 Bisacodyl (Dulcolax) 5 mg DAILY PRN PO CONSTIPATION; Start 06/11/17 at 14:30 Heparin Sodium (Porcine) 5000 unit 5,000 unit Q8 SC Last administered on 05:43; Admin Dose 5,000 UNIT; Start 06/11/17 at 22:00 Cefepime HCl (Maxipime 1gm/50 ml (Pmx)) 50 ml @ 100 mls/hr Q12 IVPB Last administered on 06/12/17 08:27; Admin Dose 100 MLS/HR; Start 06/11/17 at 21: 00 Diphenhydramine HCl (Benadryl) 25 mg Q6H PRN PO ITCHING; Start 06/12/17 at 11: 00 MELANIE COYNE Jun 12, 2017 11:37
[2017-06-12] MEDS ORDERED: LEVOFLOXACIN 500MG/D5W (PMX) 100 ML IVPB SCH (12:00)
[2017-06-12] MEDS: DIPHENHYDRAMINE 25 MG CAP PO PRN ×2 (12:36→20:57)
[2017-06-12] MEDS ORDERED: METHYLPREDNISOLONE 40 MG INJ IV SCH (14:00)
[2017-06-12 14:09] VITALS: BP 102/72; PULSE 89; RESP 17
--- NOTE | 2017-06-12 17:08 | PN ---
Date/Time of Note Date/Time of Note DATE: 06/12/17 TIME: 17:02 Assessment/Plan VTE Prophylaxis VTE Prophylaxis Intervention: SCD's Lines/Catheters IV Catheter Type (from [facility]): Saline Lock Assessment/Plan Assessment/Plan 57 yo M here with 3 mos of cough in setting of travel to [facility]. Cough has not responded to multiple courses of abx. CXR unremarkable but CTA with LLL bronchiolitis. Given cough's duration, and pt's overall clinical stability over this interval, it's quite possible cough is in fact non infectious in origin. PLAN narrow abx to levoflox. No evidence of acute infiltrative process therefore no compelling indication for cefepime. Patient does not have pneumonia. empiric steroids at this point I honestly do not understand the utility of a quant gold/latent TB evaluation. The issue at hand is whether or not pt has been exposed to TB but whether or not he has active disease which at this point only sputum AFBs will tell us. Sputum AFBs in process, as well as regular respiratory culture Once sputum AFBs negative x 3 and pt is found to not have active TB he can likely be discharged with outpatient follow up will also try h2b (for GERD) and antihistamines (to r/o PND) to help treat noninfectious causes of cough 4.5 cm AAA: needs outpatient vascular follow up. BP control Exam/Review of Systems Vital Signs Vitals Vital Signs Date Time Temp Pulse Resp B/P Pulse Ox O2 Delivery O2 Flow Rate FiO2 06/12/17 14:09 98.0 89 17 102/72 97 Room Air 06/12/17 07:31 21 Intake and Output 06/11/17 06/11/17 06/12/17 15:00 23:00 07:00 Intake Total 290 ml 1000 ml Output Total 1400 ml Balance 290 ml -400 ml Results Result Diagram: 06/12/17 0652 06/12/17 0652 Results 24 hrs Laboratory Tests Test 06/12/17 06:52 White Blood Count 6.3 # Red Blood Count 4.29 L Hemoglobin 13.3 L Hematocrit 41.0 L Mean Corpuscular Volume 95.6 Mean Corpuscular Hemoglobin 31.0 Mean Corpuscular Hemoglobin Concent 32.4 Red Cell Distribution Width 11.9 Platelet Count 227 Mean Platelet Volume 9.4 Neutrophils % 42.5 Lymphocytes % 39.6 Monocytes % 9.7 Eosinophils % 7.0 Basophils % 1.0 Nucleated Red Blood Cells % 0.0 Neutrophils # 2.7 Lymphocytes # 2.5 Monocytes # 0.6 Eosinophils # 0.4 Basophils # 0.1 Nucleated Red Blood Cells # 0.0 Sodium Level 140 Potassium Level 4.1 Chloride Level 104 Carbon Dioxide Level 27 Anion Gap 13 Blood Urea Nitrogen 17 Creatinine 1.19 Glucose Level 101 Calcium Level 9.2 Magnesium Level 2.2 Total Bilirubin 0.5 Direct Bilirubin 0.00 Indirect Bilirubin 0.5 Aspartate Amino Transf (AST/SGOT) 33 Alanine Aminotransferase (ALT/SGPT) 46 Alkaline Phosphatase 75 Total Protein 7.4 Albumin 3.9 Globulin 3.50 H Albumin/Globulin Ratio 1.11 Medications Medications Current Medications Lorazepam (Ativan) 0.5 mg Q8H PRN PO ANXIETY; Start 06/11/17 at 14:30 Ondansetron HCl (Zofran Inj) 4 mg Q6H PRN IV NAUSEA AND/OR VOMITING; Start at 14:30 Acetaminophen (Tylenol Tab) 650 mg Q6H PRN PO PAIN LEVEL 1-3 OR FEVER; Start 06/11/17 at 14:30 Acetaminophen/ Hydrocodone Bitart ([place] (5/325)) 1 tab Q6H PRN PO PAIN LEVEL 4 -6 Last administered on 06/11/17 21:44; Admin Dose 1 TAB; Start 06/11/17 at 14:30 Morphine Sulfate (morphine) 2 mg Q4H PRN IV PAIN LEVEL 7-10; Start 06/11/17 at 14:30 Bisacodyl (Dulcolax) 5 mg DAILY PRN PO CONSTIPATION; Start 06/11/17 at 14:30 Heparin Sodium (Porcine) (Heparin (5000 Units/0.5 ml)) 5,000 unit Q8 SC Last administered on 06/12/17 12:46; Admin Dose 5,000 UNIT; Start 06/11/17 at 22: 00 Diphenhydramine HCl (Benadryl) 25 mg Q6H PRN PO ITCHING Last administered on 12:36; Admin Dose 25 MG; Start 06/12/17 at 11:00 Levofloxacin (Levaquin) 500 mg DAILY@06 PO ; Start 06/13/17 at 06:00; Status UNV Prednisone (Prednisone) 40 mg DAILY PO ; Start 06/13/17 at 09:00; Status UNV MELO BRANTLEY MD Jun 12, 2017 17:08
--- NOTE | 2017-06-12 17:27 | PN ---
DATE: 06/12/2017 SUBJECTIVE: No acute events. The patient is alert, feels better, looks comfortable. He is afebril e. LABORATORY DATA: WBC today 6.3, no shift, no bands. BUN 17, creatinine 1.19. DIAGNOSTICS: Chest x-ray this morning revealed no evidence of active TB. CT of the chest showed pe ribronchial nodular opacity in the left lower lobe, likely represent focus of bronchiolitis. ANTIMICROBIALS: The patient is on levofloxacin and cefepime. He was also started on steroids by lmonary team. PHYSICAL EXAMINATION: GENERAL: Well-developed, middle-aged [place] man who is alert, in no distress. HEENT: Head atraumatic, normocephalic. Sclerae anicteric. Buccal mucosa pink. NECK: Supple. CHEST: Rise symmetrical. Breath sounds clear. HEART: S1, S2. ABDOMEN: Soft. Bowel tones present. ASSESSMENT: 1. Pneumonia with acute bronchitis. 2. Systemic inflammatory response syndrome secondary to above. PLAN: The patient remained stable, pulmonary team follows. No suspicious for TB per discussion wit h Dr. Fitzgerald, continue on current antibiotics and steroids. Dictated By: DAIJA ADAMS EXERCISE RIDER for LUIS ANGEL CHARLES/ISABEL Conf#: [id number] DID#: [id number]
[2017-06-12 20:04] VITALS: BP 106/72; RESP 18
[2017-06-12] MEDS: FAMOTIDINE 20 MG TAB PO SCH (20:57)
[2017-06-12] MEDS: FLUTICASONE 0.05% 16 GM NAS SPRAY NASAL SCH (20:57)
[2017-06-13 01:39] VITALS: BP 105/73; RESP 18
[2017-06-13] MEDS: HYDROCODONE/APAP (5/325) TAB PO PRN (01:56)
[2017-06-13] MEDS: HEPARIN 5,000 UNIT/0.5 ML VIAL SC SCH ×3 (06:00→21:38)
[2017-06-13] MEDS: LEVOFLOXACIN 500 MG TAB PO SCH (06:11)
[2017-06-13] MEDS: ALBUTEROL/IPRATROPIUM (NEB) 3 ML AMP HHN SCH ×3 (07:37→19:38)
[2017-06-13 08:08] VITALS: BP 106/75; RESP 19
[2017-06-13] MEDS: predniSONE 20 MG TAB PO SCH (08:11)
[2017-06-13] MEDS: FLUTICASONE 0.05% 16 GM NAS SPRAY NASAL SCH ×2 (08:11→21:25)
[2017-06-13] MEDS: PANTOPRAZOLE (EC) 40 MG TAB PO SCH (08:11)
[2017-06-13] MEDS: LORATADINE 10 MG TAB PO SCH (08:12)
--- NOTE | 2017-06-13 11:36 | CONS ---
Date/Time of Note Date/Time of Note DATE: 06/13/17 TIME: 11:33 Assessment/Plan Assessment/Plan Additional Assessment/Plan Assessment and recommendations; 1. Patient admitted with a 3-1/2 month long history of cough with essentially unremarkable clinical findings. CT scan showing minimal infiltrate in the left lower lobe area. This likely represents post infectious bronchiolitis. 2. Pulmonary tuberculosis is very unlikely. However QuantiFERON gold test is pending. 3. Significant clinical improvement after being started on prednisone and Levaquin . Continue current treatment. Agree with switching from Solu-Medrol to oral prednisone as well as switching from intravenous Levaquin to oral Levaquin. Consultation Date/Type/Reason Admit Date/Time Jun 11, 2017 at 14:30 Initial Consult Date 06/12/17 Type of Consultation: Pulmonary 24 HR Interval Summary Free Text/Dictation Patient condition is significantly improved. Reports marked reduction in cough. Denies any shortness of breath, fever, chest pain wheezing or shortness of breath. General exam; middle-aged male, awake alert, currently no distress. No coughing episodes observed during patient evaluation. Exam/Review of Systems Vital Signs Vitals Vital Signs Date Time Temp Pulse Resp B/P Pulse Ox O2 Delivery O2 Flow Rate FiO2 06/13/17 08:08 98.0 95 19 106/75 95 06/13/17 07:37 21 06/12/17 14:09 Room Air Intake and Output 06/12/17 06/12/17 06/13/17 15:00 23:00 07:00 Intake Total 150 ml 2000 ml 700 ml Output Total 1800 ml 1100 ml Balance 150 ml 200 ml -400 ml Exam H ENT exam; supple neck, no JVD. No lymphadenopathy. Midline trachea. No thyromegaly. Patient has good dentition. Pharynx is clear. Chest exam; clear to auscultation. S1-S2 audible, no murmurs. Regular rhythm. Abdomen exam; soft, nontender. No organomegaly. Bowel sounds audible. Extremity exam; no edema. No clubbing. 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 Results Result Diagram: 06/12/17 0652 06/12/17 0652 Medications Medications Current Medications Lorazepam (Ativan) 0.5 mg Q8H PRN PO ANXIETY Last administered on 06/13/17t 00 :05; Admin Dose 0.5 MG; Start 06/11/17 at 14:30 Ondansetron HCl (Zofran Inj) 4 mg Q6H PRN IV NAUSEA AND/OR VOMITING; Start at 14:30 Acetaminophen (Tylenol Tab) 650 mg Q6H PRN PO PAIN LEVEL 1-3 OR FEVER; Start 06/11/17 at 14:30 Acetaminophen/ Hydrocodone Bitart ([place] (5/325)) 1 tab Q6H PRN PO PAIN LEVEL 4 -6 Last administered on 06/13/17 01:56; Admin Dose 1 TAB; Start 06/11/17 at 14:30 Morphine Sulfate (morphine) 2 mg Q4H PRN IV PAIN LEVEL 7-10; Start 06/11/17 at 14:30 Bisacodyl (Dulcolax) 5 mg DAILY PRN PO CONSTIPATION; Start 06/11/17 at 14:30 Heparin Sodium (Porcine) (Heparin (5000 Units/0.5 ml)) 5,000 unit Q8 SC Last administered on 06/12/17 21:04; Admin Dose 5,000 UNIT; Start 06/11/17 at 22: 00 Diphenhydramine HCl (Benadryl) 25 mg Q6H PRN PO ITCHING Last administered on 20:57; Admin Dose 25 MG; Start 06/12/17 at 11:00 Levofloxacin (Levaquin) 500 mg DAILY@06 PO Last administered on 06/13/17 06: 11; Admin Dose 500 MG; Start 06/13/17 at 06:00 Prednisone (Prednisone) 40 mg DAILY PO Last administered on 06/13/17 08:11; Admin Dose 40 MG; Start 06/13/17 at 09:00 Loratadine (Claritin) 10 mg DAILY PO Last administered on 06/13/17 08:12; Admin Dose 10 MG; Start 06/13/17 at 09:00 Fluticasone Propionate (Flonase 0.05% Nasal) 1 spray BID NASAL Last administered on 06/13/17 08:11; Admin Dose 1 SPRAY; Start 06/12/17 at 21:00 Famotidine (Pepcid) 10 mg HS PO Last administered on 06/12/17 20:57; Admin Dose 10 MG; Start 06/12/17 at 21:00 MELANIE COYNE 26, 2017 11:36
[2017-06-13 14:29] VITALS: BP 111/74; RESP 26
--- NOTE | 2017-06-13 15:15 | PN ---
Date/Time of Note Date/Time of Note DATE: 06/13/17 TIME: 15:11 Assessment/Plan VTE Prophylaxis VTE Prophylaxis Intervention: SCD's Lines/Catheters IV Catheter Type (from [facility] Saline Lock Assessment/Plan Assessment/Plan 57 yo M here with 3 mos of cough. Given recent travel to [facility], ER wanted TB ruled out. Chest Guidelines re sub acute/chronic cough reviewed. By and large these are NON INFECTIOUS in origin. Most common causes are post viral v cough variant asthma PLAN abx per pulm/ID insistence per chest guidelines will put end date of 10 days of therapy cont steroids per pulm rec cont AFBs cont management of noninfectious causes of cough with GERD treatment with PPI and PND treatment with flonase/loratadine. will add empiric ICS as per Chest recs incidental finding of AAA: dw patient at length, vascular surgeon to stop by in AM. BP controlled. Once sputum AFBs negative x 3 and pt is found to not have active TB he can likely be discharged with outpatient follow up Reference: Diagnosis and Management of Cough Executive Summary Edenilson Talley et al. CHEST , Volume 129 , Issue 1 , 1S - 23S Subjective 24 Hr Interval Summary Free Text/Dictation Pt states he had a cold 3 mos ago while in [place]. Has been coughing since. Went to a few providers in [facility]. The meds he was given there for his cough (which had been going on for 2 mos at that time) included: Reversair ( Singulair), Nexium, ?deflux?, Seroflo (Advair), ?doxira? (donezapil) pt also reports PND and chronic GERD AAA discussed with patient as well Exam/Review of Systems Vital Signs Vitals Vital Signs Date Time Temp Pulse Resp B/P Pulse Ox O2 Delivery O2 Flow Rate FiO2 06/13/17 14:29 98.2 109 26 111/74 95 06/13/17 13:42 21 06/12/17 14:09 Room Air Intake and Output 06/12/17 06/12/17 06/13/17 15:00 23:00 07:00 Intake Total 150 ml 2000 ml 700 ml Output Total 1800 ml 1100 ml Balance 150 ml 200 ml -400 ml Exam nad no mrg lungs clear abd soft no rashes AFB neg x 1 Results Result Diagram: 06/12/1752 06/12/17 0652 Medications Medications Current Medications Lorazepam (Ativan) 0.5 mg Q8H PRN PO ANXIETY Last administered on 06/13/17 00 :05; Admin Dose 0.5 MG; Start 06/11/17 at 14:30 Ondansetron HCl (Zofran Inj) 4 mg Q6H PRN IV NAUSEA AND/OR VOMITING; Start at 14:30 Acetaminophen (Tylenol Tab) 650 mg Q6H PRN PO PAIN LEVEL 1-3 OR FEVER; Start 06/11/17 at 14:30 Acetaminophen/ Hydrocodone Bitart ([place] (5/325)) 1 tab Q6H PRN PO PAIN LEVEL 4 -6 Last administered on 06/13/17 01:56; Admin Dose 1 TAB; Start 06/11/17 at 14:30 Morphine Sulfate (morphine) 2 mg Q4H PRN IV PAIN LEVEL 7-10; Start 06/11/17 at 14:30 Bisacodyl (Dulcolax) 5 mg DAILY PRN PO CONSTIPATION; Start 06/11/17 at 14:30 Heparin Sodium (Porcine) (Heparin (5000 Units/0.5 ml)) 5,000 unit Q8 SC Last administered on 06/13/17 14:30; Admin Dose 5,000 UNIT; Start 06/11/17 at 22: 00 Diphenhydramine HCl (Benadryl) 25 mg Q6H PRN PO ITCHING Last administered on 20:57; Admin Dose 25 MG; Start 06/12/17 at 11:00 Levofloxacin (Levaquin) 500 mg DAILY@06 PO Last administered on 06/13/17 06: 11; Admin Dose 500 MG; Start 06/13/17 at 06:00 Prednisone (Prednisone) 40 mg DAILY PO Last administered on 06/13/17 08:11; Admin Dose 40 MG; Start 06/13/17 at 09:00 Loratadine (Claritin) 10 mg DAILY PO Last administered on 06/13/17 08:12; Admin Dose 10 MG; Start 06/13/17 at 09:00 Fluticasone Propionate (Flonase 0.05% Nasal) 1 spray BID NASAL Last administered on 06/13/17 08:11; Admin Dose 1 SPRAY; Start 12/25/17 at 21:00 Famotidine (Pepcid) 10 mg HS PO Last administered on 06/12/17t 20:57; Admin Dose 10 MG; Start 06/12/17 at 21:00 MELO BRANTLEY MD Jun 13, 2017 15:15
[2017-06-13 19:46] VITALS: BP 122/82; RESP 18
--- NOTE | 2017-06-13 19:50 | CONS ---
Date/Time of Note Date/Time of Note DATE: 06/13/17 TIME: 19:48 Assessment/Plan Assessment/Plan Chief Complaint/Hosp Course SUBJECTIVE: No acute events. The patient is alert, feels better, no fevers DIAGNOSTICS: Chest x-ray this morning revealed no evidence of active TB. CT of the chest showed peribronchial nodular opacity in the left lower lobe, likely represent focus of bronchiolitis. ANTIMICROBIALS: The patient is on levofloxacin, s/p cefepime. PHYSICAL EXAMINATION: GENERAL: Well-developed, middle-aged [place] man who is alert, in no distress. HEENT: Head atraumatic, normocephalic. Sclerae anicteric. Buccal mucosa pink. NECK: Supple. CHEST: Rise symmetrical. Breath sounds clear. HEART: S1, S2. ABDOMEN: Soft. Bowel tones present. ASSESSMENT: 1. Pneumonia with acute bronchitis. 2. Systemic inflammatory response syndrome secondary to above. PLAN: The patient remained stable, continue on current abx, f/u pulmonary rec-s DW staff Problems: Consultation Date/Type/Reason Admit Date/Time Jun 11, 2017 at 14:30 Initial Consult Date 06/12/17 Type of Consultation: ID Exam/Review of Systems Vital Signs Vitals Vital Signs Date Time Temp Pulse Resp B/P Pulse Ox O2 Delivery O2 Flow Rate FiO2 06/13/17 19:46 97.5 96 18 122/82 99 06/13/17 19:38 21 06/12/17 14:09 Room Air Intake and Output 06/12/17 06/12/17 06/13/17 14:59 22:59 06:59 Intake Total 150 ml 2000 ml 700 ml Output Total 1800 ml 1100 ml Balance 150 ml 200 ml -400 ml Results Result Diagram: 06/12/17 0652 06/12/17 0652 Medications Medications Current Medications Lorazepam (Ativan) 0.5 mg Q8H PRN PO ANXIETY Last administered on 06/13/17t 00 :05; Admin Dose 0.5 MG; Start 06/11/17 at 14:30 Ondansetron HCl (Zofran Inj) 4 mg Q6H PRN IV NAUSEA AND/OR VOMITING; Start at 14:30 Acetaminophen (Tylenol Tab) 650 mg Q6H PRN PO PAIN LEVEL 1-3 OR FEVER; Start 06/11/17 at 14:30 Acetaminophen/ Hydrocodone Bitart ([place] (5/325)) 1 tab Q6H PRN PO PAIN LEVEL 4 -6 Last administered on 06/13/17 01:56; Admin Dose 1 TAB; Start 06/11/17 at 14:30 Morphine Sulfate (morphine) 2 mg Q4H PRN IV PAIN LEVEL 7-10; Start 06/11/17 at 14:30 Bisacodyl (Dulcolax) 5 mg DAILY PRN PO CONSTIPATION; Start 06/11/17 at 14:30 Heparin Sodium (Porcine) (Heparin (5000 Units/0.5 ml)) 5,000 unit Q8 SC Last administered on 06/13/17 14:30; Admin Dose 5,000 UNIT; Start 06/11/17 at 22: 00 Diphenhydramine HCl (Benadryl) 25 mg Q6H PRN PO ITCHING Last administered on 20:57; Admin Dose 25 MG; Start 06/12/17 at 11:00 Levofloxacin (Levaquin) 500 mg DAILY@06 PO Last administered on 06/13/17 06: 11; Admin Dose 500 MG; Start 06/13/17 at 06:00 Prednisone (Prednisone) 40 mg DAILY PO Last administered on 06/13/17 08:11; Admin Dose 40 MG; Start 06/13/17 at 09:00 Loratadine (Claritin) 10 mg DAILY PO Last administered on 06/13/17 08:12; Admin Dose 10 MG; Start 06/13/17 at 09:00 Fluticasone Propionate (Flonase 0.05% Nasal) 1 spray BID NASAL Last administered on 06/13/17 08:11; Admin Dose 1 SPRAY; Start 06/12/17 at 21:00 Famotidine (Pepcid) 10 mg HS PO Last administered on 06/12/17 20:57; Admin Dose 10 MG; Start 06/12/17 at 21:00 Mometasone Furoate (Asmanex) 1 puff BID INH ; Start 06/13/17 at 21:00 DAIJA ADAMS NP Jun 13, 2017 19:50
[2017-06-13 20:28] LABS: TB-NIL 0.84 IU/mL
[2017-06-13] MEDS ORDERED: ZOLPIDEM 5 MG TAB PO ONE (21:00)
[2017-06-13] MEDS: MOMETASONE 0.24 GM INHALER INH SCH (21:25)
[2017-06-13] MEDS: FAMOTIDINE 20 MG TAB PO SCH (21:25)
[2017-06-14] MEDS ORDERED: ZOLPIDEM 5 MG TAB PO ONE
[2017-06-14 01:47] VITALS: BP 105/70; RESP 18
[2017-06-14] MEDS: HEPARIN 5,000 UNIT/0.5 ML VIAL SC SCH ×2 (06:00→13:59)
[2017-06-14] MEDS: LEVOFLOXACIN 500 MG TAB PO SCH (06:12)
[2017-06-14] MEDS: ALBUTEROL/IPRATROPIUM (NEB) 3 ML AMP HHN SCH ×2 (07:22→13:55)
[2017-06-14] MEDS: FLUTICASONE 0.05% 16 GM NAS SPRAY NASAL SCH (08:41)
[2017-06-14] MEDS: LORATADINE 10 MG TAB PO SCH (08:41)
[2017-06-14] MEDS: predniSONE 20 MG TAB PO SCH (08:41)
[2017-06-14] MEDS: PANTOPRAZOLE (EC) 40 MG TAB PO SCH (08:41)
[2017-06-14] MEDS: MOMETASONE 0.24 GM INHALER INH SCH (08:41)
[2017-06-14 09:00] VITALS: BP 109/75; RESP 19
--- NOTE | 2017-06-14 11:59 | CONS ---
Date/Time of Note Date/Time of Note DATE: 06/14/17 TIME: 11:54 Assessment/Plan Assessment/Plan Additional Assessment/Plan QuantiFERON gold test is positive. 2 sputum samples are negative for AFB stain. Assessment and recommendations; 1. Patient admitted with a 3-1/2 month long history of cough likely postviral in etiology with a very scant left lower lobe infiltrate. Clinical findings are consistent with acute bronchitis/post viral bronchiolitis. 2. QuantiFERON gold test likely is from prior exposure. 2 sputum samples are negative for AFB. 3. Significant clinical improvement after being started on oral Levaquin and Solu-Medrol switched over to prednisone. Active pulmonary tuberculosis is very unlikely. Patient can be discharged home on tapering dose of prednisone, to be started at 30 mg a day for 5 days, 20 mg a day for additional 5 days and then 10 mg a day for additional 5 days with subsequent discontinuation. Continue Levaquin orally for at least 1 week. Patient will need to have follow-up chest x-ray done in about 2 weeks time. He does have a primary care physician whom he follows up on an outpatient basis. Consultation Date/Type/Reason Admit Date/Time Jun 11, 2017 at 14:30 Initial Consult Date 06/12/17 Type of Consultation: Pulmonary 24 HR Interval Summary Free Text/Dictation Patient's condition is stable. Reports continued improvement in cough. Denies any shortness of breath, hemoptysis, fever or chills. Denies any night sweats. Denies any wheezing. General exam; elderly male, awake alert, currently in no distress. Exam/Review of Systems Vital Signs Vitals Vital Signs Date Time Temp Pulse Resp B/P Pulse Ox O2 Delivery O2 Flow Rate FiO2 06/14/17 09:00 97.5 85 19 109/75 97 06/14/17 07:22 21 06/12/17 14:09 Room Air Intake and Output 06/13/17 06/13/17 06/14/17 15:00 23:00 07:00 Intake Total 1420 ml 500 ml Output Total 600 ml Balance 820 ml 500 ml Exam HEENT exam; supple neck, no JVD. No lymphadenopathy. Midline trachea. No thyromegaly. Patient has good dentition. No neck masses. Chest exam; clear to auscultation. S1-S2 audible, no murmurs. Regular rhythm. Abdomen exam; soft, nontender. No organomegaly. Bowel sounds audible. Extremity exam; no edema. No clubbing. SUSTAINABILITY COORDINATOR exam; no focal deficit. Results Result Diagram: 06/12/1765106/12/17651 Medications Medications Current Medications Lorazepam (Ativan) 0.5 mg Q8H PRN PO ANXIETY Last administered on 06/13/17 00 :05; Admin Dose 0.5 MG; Start 06/11/17 at 14:30 Ondansetron HCl (Zofran Inj) 4 mg Q6H PRN IV NAUSEA AND/OR VOMITING; Start at 14:30 Acetaminophen (Tylenol Tab) 650 mg Q6H PRN PO PAIN LEVEL 1-3 OR FEVER; Start 06/11/17 at 14:30 Acetaminophen/ Hydrocodone Bitart ([place] (5/325)) 1 tab Q6H PRN PO PAIN LEVEL 4 -6 Last administered on 06/13/17 01:56; Admin Dose 1 TAB; Start 06/11/17 at 14:30 Morphine Sulfate (morphine) 2 mg Q4H PRN IV PAIN LEVEL 7-10; Start 06/11/17 at 14:30 Bisacodyl (Dulcolax) 5 mg DAILY PRN PO CONSTIPATION; Start 06/11/17 at 14:30 Heparin Sodium (Porcine) (Heparin (5000 Units/0.5 ml)) 5,000 unit Q8 SC Last administered on 06/13/17 14:30; Admin Dose 5,000 UNIT; Start 06/11/17 at 22: 00 Diphenhydramine HCl (Benadryl) 25 mg Q6H PRN PO ITCHING Last administered on 20:57; Admin Dose 25 MG; Start 06/12/17 at 11:00 Levofloxacin (Levaquin) 500 mg DAILY@06 PO Last administered on 06/14/17 06: 12; Admin Dose 500 MG; Start 06/13/17 at 06:00 Prednisone (Prednisone) 40 mg DAILY PO Last administered on 06/14/17 08:41; Admin Dose 40 MG; Start 06/13/17 at 09:00 Loratadine (Claritin) 10 mg DAILY PO Last administered on 06/14/17 08:41; Admin Dose 10 MG; Start 06/13/17 at 09:00 Fluticasone Propionate (Flonase 0.05% Nasal) 1 spray BID NASAL Last administered on 06/14/17 08:41; Admin Dose 1 SPRAY; Start 06/12/17 at 21:00 Famotidine (Pepcid) 10 mg HS PO Last administered on 06/13/17 21:25; Admin Dose 10 MG; Start 06/12/17 at 21:00 Mometasone Furoate (Asmanex) 1 puff BID INH Last administered on 06/14/17 08: 41; Admin Dose 1 PUFF; Start 06/13/17 at 21:00 MELANIE COYNE Jun 14, 2017 11:59
--- NOTE | 2017-06-14 12:13 | CONS ---
Date/Time of Note Date/Time of Note DATE: 06/14/17 TIME: 12:11 Assessment/Plan Assessment/Plan Chief Complaint/Hosp Course SUBJECTIVE: No acute events. The patient is alert, feels better, no fevers DIAGNOSTICS: Chest x-ray revealed no evidence of active TB. CT of the chest showed peribronchial nodular opacity in the left lower lobe, likely represent focus of bronchiolitis. ANTIMICROBIALS: The patient is on levofloxacin, s/p cefepime. PHYSICAL EXAMINATION: GENERAL: Well-developed, middle-aged man who is alert, in no distress. HEENT: Head atraumatic, normocephalic. Sclerae anicteric. Buccal mucosa pink. NECK: Supple. CHEST: Rise symmetrical. Breath sounds clear. HEART: S1, S2. ABDOMEN: Soft. Bowel tones present. ASSESSMENT: 1. Pneumonia with acute bronchitis. 2. Systemic inflammatory response syndrome secondary to above. 3. QFT +===> AFB neg 2 sets PLAN: The patient remained stable, per dw dr Penelope kim dc on oral Levaquin for 7-10 days. DW staff Problems: Consultation Date/Type/Reason Admit Date/Time Jun 11, 2017 at 14:30 Initial Consult Date 06/12/17 Type of Consultation: id Exam/Review of Systems Vital Signs Vitals Vital Signs Date Time Temp Pulse Resp B/P Pulse Ox O2 Delivery O2 Flow Rate FiO2 06/14/17 09:00 97.5 85 19 109/75 97 06/14/17 07:22 21 06/12/17 14:09 Room Air Intake and Output 06/13/17 06/13/17 06/14/17 14:59 22:59 06:59 Intake Total 1420 ml 500 ml Output Total 600 ml Balance 820 ml 500 ml Results Result Diagram: 06/12/17 0652 06/12/17 0652 Medications Medications Current Medications Lorazepam (Ativan) 0.5 mg Q8H PRN PO ANXIETY Last administered on 06/13/17t 00 :05; Admin Dose 0.5 MG; Start 06/11/17 at 14:30 Ondansetron HCl (Zofran Inj) 4 mg Q6H PRN IV NAUSEA AND/OR VOMITING; Start at 14:30 Acetaminophen (Tylenol Tab) 650 mg Q6H PRN PO PAIN LEVEL 1-3 OR FEVER; Start 06/11/17 at 14:30 Acetaminophen/ Hydrocodone Bitart ([place] (5/325)) 1 tab Q6H PRN PO PAIN LEVEL 4 -6 Last administered on 06/13/17 01:56; Admin Dose 1 TAB; Start 06/11/17 at 14:30 Morphine Sulfate (morphine) 2 mg Q4H PRN IV PAIN LEVEL 7-10; Start 06/11/17 at 14:30 Bisacodyl (Dulcolax) 5 mg DAILY PRN PO CONSTIPATION; Start 06/11/17 at 14:30 Heparin Sodium (Porcine) (Heparin (5000 Units/0.5 ml)) 5,000 unit Q8 SC Last administered on 06/13/17 14:30; Admin Dose 5,000 UNIT; Start 06/11/17 at 22: 00 Diphenhydramine HCl (Benadryl) 25 mg Q6H PRN PO ITCHING Last administered on 20:57; Admin Dose 25 MG; Start 06/12/17 at 11:00 Levofloxacin (Levaquin) 500 mg DAILY@06 PO Last administered on 06/14/17 06: 12; Admin Dose 500 MG; Start 06/13/17 at 06:00 Prednisone (Prednisone) 40 mg DAILY PO Last administered on 06/14/17 08:41; Admin Dose 40 MG; Start 06/13/17 at 09:00 Loratadine (Claritin) 10 mg DAILY PO Last administered on 06/14/17 08:41; Admin Dose 10 MG; Start 06/13/17 at 09:00 Fluticasone Propionate (Flonase 0.05% Nasal) 1 spray BID NASAL Last administered on 06/14/17 08:41; Admin Dose 1 SPRAY; Start 06/12/17 at 21:00 Famotidine (Pepcid) 10 mg HS PO Last administered on 06/13/17 21:25; Admin Dose 10 MG; Start 06/12/17 at 21:00 Mometasone Furoate (Asmanex) 1 puff BID INH Last administered on 06/14/17 08: 41; Admin Dose 1 PUFF; Start 06/13/17 at 21:00 DAIJA ADAMS NP Jun 14, 2017 12:13
[2017-06-14] MEDS ORDERED: LORA10TA3 PO (13:24)
[2017-06-14] MEDS ORDERED: IPRA3AMP HHN (13:24)
[2017-06-14] MEDS ORDERED: MOME220A2 INH (13:24)
[2017-06-14] MEDS ORDERED: FLUT16SP17 NASAL (13:24)
[2017-06-14] MEDS ORDERED: LEVO500T72 PO (13:24)
--- NOTE | 2017-06-14 13:26 | PDOCDIS ---
Discharge Instructions CONDITION Patient Condition: Stable HOME CARE INSTRUCTIONS: Special Diet: reg FOLLOW UP/APPOINTMENTS Follow-up Plan Follow up with the lung doctor/referral rn within [address] your cough Dr Sergio Fitzgerald Office Address [address] [place] [address] Office MELO BRANTLEY MD Jun 14, 2017 13:26
--- NOTE | 2017-06-14 13:28 | DS ---
Date/Time of Note Date/Time of Note DATE: 06/14/17 TIME: 13:27 Discharge Summary Admission/Discharge Info Admit Date/Time Jun 11, 2017 at 14:30 Discharge Date/Time Hospital Course Active pulmonary tuberculosis is very unlikely. Patient can be discharged home on tapering dose of prednisone, to be started at 30 mg a day for 5 days, 20 mg a day for additional 5 days and then 10 mg a day for additional 5 days with subsequent discontinuation. Continue Levaquin orally for at least 1 week. Patient will need to have follow-up chest x-ray done in about 2 weeks time. He does have a primary care physician whom he follows up on an outpatient basis. Home Meds Active Scripts Levofloxacin* (Levaquin*) 500 Mg Tablet, 500 MG PO DAILY@06 for 8 Days, #8 TAB Prov:MELO BRANTLEY MD 06/14/17 Fluticasone Propionate* (Fluticasone Propionate* Nasal) 50 Mcg/[place] - 16 Gm [place].susp, 1 SPRAY NASAL BID for 30 Days, #1 BOTTLE Prov:MELO BRANTLEY MD 06/14/17 Mometasone Furoate (Asmanex) 220 Mcg Aer.pow.ba, 1 PUFF INH BID for 30 Days, #1 EA Prov:MELO BRANTLEY MD 06/14/17 Ipratropium-Albuterol (Ipratropium-Albuterol) 0.5-3 Mg/3 Ml Ampul.neb, 3 ML HHN Q2H RESP THERAPY Y for shortness of breath for 30 Days, #1 EA Prov:MELO BRANTLEY MD 06/14/17 Loratadine* (Loratadine*) 10 Mg Tablet, 10 MG PO DAILY for 30 Days, #30 TAB Prov:MELO BRANTLEY MD 06/14/17 Benzonatate* (Benzonatate*) 200 Mg Capsule, 200 MG PO TID Y for COUGH, #20 CAP Prov:CALIXTO RICHARDSON PA-C 04/09/17 Sodium Chloride (Saline Nasal Mist) 126 Ml Mist, 2 SPRAY NASAL Q2H Y for NASAL CONGESTION, #1 BOTTLE Prov:RUPA KNOX VP DESIGN 03/12/17 Menthol (COUGH DROPS) 2.7 Mg Lozenge, 2.7 MG MM q1-2 hrs Y for COUGH, #30 LOZENGE Prov:RUPA KNOX. VP DESIGN 03/12/17 Aspirin* (Aspirin* EC) 81 Mg Tablet., 81 MG PO DAILY, #30 TAB Prov:CALIXTO VELAZQUEZ MD 03/16/14 Reported Medications Alprazolam* (Alprazolam*) 0.5 Mg Tablet, 0.5 MG PO IN THE MORNING Y for ANXIETY , TAB 06/12/17 [Zantac] No Conflict Check 08/31/16 Omeprazole* (Omeprazole*) 40 Mg Capsule., 40 MG PO DAILY, CAP 03/14/14 Follow-up Plan Follow up with the lung doctor/airframe and powerplant mechanic within [address] Sergio Fitzgerald Office Address [address] [place] [address] Office Primary Care Provider Annabella Sparks Copies To: CC: SERGIO FITZGERALD ELLEN MD Jun 14, 2017 13:28
--- NOTE | 2017-06-14 13:33 | DS ---
Date/Time of Note Date/Time of Note DATE: 06/14/17 TIME: 13:31 Discharge Summary Admission/Discharge Info Admit Date/Time Jun 11, 2017 at 14:30 Discharge Date/Time Discharge Diagnosis chronic cough, etiology unclear. Latent TB infection, aortic aneurysm ( incidental finding) Patient Condition: Good Consults ID, pulm, vascular surgery Procedures 12.24 blood cultures ng 2/2 12.25 AFB sputum prelim neg 12.26 AFB sputum prelim neg 12.27 AFB sputum collected Quant gold + 12.24 CTA chest IMPRESSION: 1. 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 Ectasia of the remaining ascending thoracic aorta extending into the aortic arch and proximal descending thoracic aorta. Proximal descending thoracic aorta measures 3.6 cm. No aortic dissection. 2. No evidence of pulmonary embolus. 3. Stable nodular opacities noted in the left lower lobe, likely infectious/ inflammatory. Hx of Present Illness Patient is a 57-year-old [facility] male who presents with a 3-1/2 month history of cough. Patient states that this started out of nowhere and patient stated that he initially got antibiotic such as azithromycin approximately 3 and half months ago by his family practitioner. Patient took medication and the cough did not resolve. Since that time patient also went to [facility] where the cough continued and he also saw a practitioner in [facility] and was given additional antibiotics with no resolution of cough. Patient denies any purulent sputum and denies any hemoptysis. Patient states that there is no difference between night and day of chronic cough nor it being inside or outside. Patient denies being sick at this time and has no acute complaints. Patient denies chest pain, shortness breath, nausea, vomiting, abdominal pain, debility. Hospital Course 57 yo M here with 3 mos of cough. Given recent travel to [facility], ER wanted TB ruled out. Pt with serial negative AFB. +Quantiferon gold which indicative of latent TB/previous TB exposure. As per Chest guidelines, pt started on a 10 day course of PO levoflox. Also given a prednisone burst. GERD therapy continued , PND treatment/cough variant therapy also initiated. CT chest with incidental finding of AAA. This was dw pt and vascular surgery. BP ok on no meds. Close outpatient follow up with vascular surgery was advised as was the importance of this follow up. copy of dc summary also faxed to PCP Home Meds Active Scripts Levofloxacin* (Levaquin*) 500 Mg Tablet, 500 MG PO DAILY@06 for 8 Days, #8 TAB Prov:MELO BRANTLEY MD 06/14/17 Fluticasone Propionate* (Fluticasone Propionate* Nasal) 50 Mcg/[place] - 16 Gm [place].susp, 1 SPRAY NASAL BID for 30 Days, #1 BOTTLE Prov:MELO BRANTLEY MD 06/14/17 Mometasone Furoate (Asmanex) 220 Mcg Aer.pow.ba, 1 PUFF INH BID for 30 Days, #1 EA Prov:MELO BRANTLEY MD 06/14/17 Ipratropium-Albuterol (Ipratropium-Albuterol) 0.5-3 Mg/3 Ml Ampul.neb, 3 ML HHN Q2H RESP THERAPY Y for shortness of breath for 30 Days, #1 EA Prov:MELO BRANTLEY MD 06/14/17 Loratadine* (Loratadine*) 10 Mg Tablet, 10 MG PO DAILY for 30 Days, #30 TAB Prov:MELO BRANTLEY MD 06/14/17 Benzonatate* (Benzonatate*) 200 Mg Capsule, 200 MG PO TID Y for COUGH, #20 CAP Prov:CALIXTO RICHARDSON PA-C 04/09/17 Sodium Chloride (Saline Nasal Mist) 126 Ml Mist, 2 SPRAY NASAL Q2H Y for NASAL CONGESTION, #1 BOTTLE Prov:RUPA KNOX. COMPLAINT MANAGER 03/12/17 Menthol (COUGH DROPS) 2.7 Mg Lozenge, 2.7 MG MM q1-2 hrs Y for COUGH, #30 LOZENGE Prov:RUPA KNOX. COMPLAINT MANAGER 03/12/17 Aspirin* (Aspirin* EC) 81 Mg Tablet., 81 MG PO DAILY, #30 TAB Prov:CALIXTO VELAZQUEZ MD 03/16/14 Reported Medications Alprazolam* (Alprazolam*) 0.5 Mg Tablet, 0.5 MG PO IN THE MORNING Y for ANXIETY , TAB 06/12/17 [Zantac] No Conflict Check 08/31/16 Omeprazole* (Omeprazole*) 40 Mg Capsule., 40 MG PO DAILY, CAP 03/14/14 Follow-up Plan Follow up with the lung doctor/waxer operator within [address] Sergio Fitzgerald Office Address [address] [facility] [facility] [place] [address] Office Primary Care Provider Annabella Sparks Address: [address] [place] [address] Fax Number Time spent on discharge: > 30 minutes Copies To: CC: SHYANN ARMSTRONG MD; SERGIO FITZGERALD ELLEN MD Jun 14, 2017 13:33
[2017-06-14 15:14] VITALS: BP 120/87; RESP 18
== END 2017-06-14 15:40 | disposition home or self-care (01) | DRG 204 ==
LOC: FTE 07:59 → MS2 14:30
PROVIDERS: ADMIT Internal Medicine; ATTEND Internal Medicine
DX: R05 Cough (principal); I71.4 Abdominal aortic aneurysm, without rupture; Z79.82 Long term (current) use of aspirin
CPT/HCPCS: 36415; 71010; 71250; 71275; 80053; 83735; 85025; 86480; 87040; 87070; 87081; 87116; 94640; 94664; 96374; J0692; J1644; J1956; J2920; J7512; Q9967

== ENCOUNTER 2018-08-23 08:14 | Day surgery (SDC) | payer OTHER ==
[~2018-08-23] VITALS: Ht 167.6 cm; Wt 65.0 kg
[~2018-08-23 08:14] MED LIST changes: +ALPR0.5T6 PO; -ASPI-664 PO; +ASPI-817 PO; -BENZ200C43 PO; +BENZ200C68 PO; +FLUT16SP17 NASAL; +IPRA3AMP29 HHN; +LEVO500T48 PO; +LORA10TA3 PO; +MOME220A2 INH; -ZANTAC
[2018-08-23 09:11] VITALS: Ht 167.6 cm; Wt 65.0 kg
[2018-08-23] MEDS ORDERED: RANI150T35 PO (09:22)
[2018-08-23] MEDS ORDERED: TAMS-14 PO (09:22)
[2018-08-23] MEDS ORDERED: [UNRECOGNIZED DRUG - REMARK] (09:22)
[2018-08-23] MEDS ORDERED: DIPH25CA6 PO (09:22)
[2018-08-23 09:46] VITALS: BP 106/71; PULSE 62; RESP 16
[2018-08-23] MEDS ORDERED: FENTAnyl 50 MCG/ML VIAL ONE (10:24)
[2018-08-23] MEDS ORDERED: MIDAZOLAM 1 MG/ML 2 ML INJ ONE ×2 (10:24)
[2018-08-23 10:39] VITALS: BP 99/60; PULSE 58; RESP 16
== END 2018-08-23 12:03 | disposition home or self-care (01) ==
LOC: GIL 08:14
PROVIDERS: ATTEND Internal Medicine Gastroenterology
DX: Z12.11 Encounter for screening for malignant neoplasm of colon (principal); K64.8 Other hemorrhoids; K44.9 Diaphragmatic hernia without obstruction or gangrene; K21.9 Gastro-esophageal reflux disease without esophagitis
CPT/HCPCS: 43239; 45378; 88305; 88312; J2250; J3010; Z7610

== ENCOUNTER 2018-10-14 06:25 | Emergency (ER) | payer OTHER ==
[~2018-10-14] VITALS: Wt 59.1 kg
[~2018-10-14 06:25] MED LIST changes: -ALPR0.5T6 PO; -BENZ200C68 PO; +DIPH25CA6 PO; -FLUT16SP17 NASAL; -IPRA3AMP29 HHN; -LEVO500T48 PO; -LORA10TA3 PO; -MENT2.7L MM; -MOME220A2 INH; +RANI150T35 PO; -SODI126M NASAL; +TAMS-14 PO; +[UNRECOGNIZED DRUG - REMARK]
[2018-10-14 06:45] VITALS: BP 125/82; PULSE 73; RESP 20
[2018-10-14] MEDS ORDERED: KETOROLAC 60 MG INJ IM STA (08:03)
[2018-10-14] MEDS ORDERED: ACETAMINOPHEN 500 MG TAB PO STA (08:03)
[2018-10-14] MEDS ORDERED: BENZONATATE 100 MG CAP PO ONE ×2 (08:30)
[2018-10-14] MEDS ORDERED: DEXAMETHASONE 10 MG/ML 1 ML INJ IM ONE (08:30)
[2018-10-14] MEDS ORDERED: PROMETHAZINE/CODEINE 5ML CUP PO ONE (08:30)
[2018-10-14] MEDS ORDERED: NAPR-688 PO (09:48)
[2018-10-14] MEDS ORDERED: AMOX1TAB10 PO (09:48)
[2018-10-14] MEDS ORDERED: PROM5SYR2 PO ×2 (09:48→09:50)
[2018-10-14] MEDS ORDERED: CETI10TA19 PO (09:48)
[2018-10-14] MEDS ORDERED: BENZ-6 PO (09:50)
--- NOTE | 2018-10-14 11:23 | ERD ---
ER Documentation Chief Complaint Chief Complaint cough, fever HPI History of Present Illness: 58-year-old male with no past medical history coming in today with complaint of productive cough with white phlegm, chills, headache, fatigue. Patient reports going to primary care doctor approximately 5 days ago in which he was given a Z-Emigdio and Promethazine DM. Patient reports no relief of coughing since taking medications. Patient denies any other associated symptoms. Denies chest pain, shortness of breath. At home pharmacological/nonpharmacological treatment for symptoms: No medications today, yesterday patient took Advil, cough medications, Benadryl Denies social concerns; Denies recent foreign travel ROS All systems reviewed and are negative except as per history of present illness. Medications Home Meds Active Scripts Benzonatate* (Tessalon Perle*) 100 Mg Capsule, 200 MG PO Q8H PRN for COUGH, #30 CAP Prov:VIVI LÓPEZ NP 10/14/18 Promethazine HCl/Codeine (Prometh-Codein 6.25-10 mg/5 ml) 5 Ml Syrup, 10 ML PO Q12 PRN for SEVERE COUGH, #90 Patient may take 5 mL BID if the 10 ML BID makeS patient too sleepy DURING DAYTIME. Prov:VIVI LÓPEZ NP 10/14/18 Cetirizine Hcl* (Cetirizine Hcl*) 10 Mg Tablet, 10 MG PO DAILY for COUGH/RUNNY NOSE/ALLERGIES, #30 TAB Prov:VIVI LÓPEZ NP 10/14/18 Naproxen* (Naproxen*) 500 Mg Tablet, 500 MG PO BID PRN for PAIN AND/OR INFLAMMATION, #30 TAB Prov:VIVI LÓPEZ NP 10/14/18 Amoxicillin/Potassium Clav (Amox-Clav 875-125 mg Tablet) 875-125 mg Tab, 1 TAB PO BID for sinus infection for 7 Days, #20 TAB Prov:VIVI LÓPEZ NP 10/14/18 Aspirin* (Aspirin* EC) 81 Mg Tablet.dr, 81 MG PO DAILY, #30 TAB Prov:CALIXTO VELAZQUEZ MD 03/16/14 Reported Medications Diphenhydramine Hcl* (Diphenhydramine Hcl*) 25 Mg Capsule, 25 MG PO Q6 PRN for ITCHING, CAP 08/23/18 Tamsulosin Hcl* (Flomax*) 0.4 Mg Cap.er.24h, 0.4 MG PO HS, CAP 08/23/18 [Sleep Med. Daily] No Conflict Check 08/23/18 Ranitidine Hcl* (Zantac*) 150 Mg Tablet, 150 MG PO HS, #30 TAB 08/23/18 Omeprazole* (Omeprazole*) 40 Mg Capsule.dr, 40 MG PO DAILY, CAP 03/14/14 Allergies Allergies: Coded Allergies: No Known Drug Allergies (Verified Allergy, Unknown, 08/23/18) PMhx/Soc History of Surgery: No Anesthesia Reaction: No Hx Neurological Disorder: No Hx Respiratory Disorders: No Hx Cardiac Disorders: No Hx Psychiatric Problems: No Hx Miscellaneous Medical Probl: No Hx Alcohol Use: No Hx Substance Use: No Hx Tobacco Use: No FmHx Family History: No diabetes, No coronary disease Physical Exam Vitals Vital Signs Date Temp Pulse Resp B/P (MAP) Pulse Ox O2 O2 Flow FiO2 Time Delivery Rate 10/14/18 97.9 73 20 125/82 97 06:45 (96) Physical Exam Const: No acute distress, patient frequently coughing during examination, unable to speak a FULL sentence without coughing Head: Atraumatic, tenderness to palpation over frontal maxillary sinuses. Eyes: Normal Conjunctiva ENT: Normal External Ears, and Mouth. Neck: Full range of motion. No meningismus. Resp: Clear to auscultation bilaterally. Cardio: Regular rate and rhythm, no murmurs Abd: Soft, non tender, non distended. Normal bowel sounds Skin: No petechiae or rashes Back: No midline or flank tenderness Ext: No cyanosis, or edema Neur: Awake and alert Psych: Normal Mood and Affect Results 24 hrs Current Medications Medications Dose Sig/Roxana Start Time Status Last (Trade) Ordered Route PRN Stop Time Admin Dose Reason Admin Ketorolac 60 mg ONCE STAT 10/14/18 DC 10/14/18 Tromethamine IM 08:03 08:17 (Toradol) 10/14/18 08:06 1,000 mg ONCE STAT 10/14/18 DC 10/14/18 Acetaminophen PO 08:03 08:17 (Tylenol 10/14/18 08:06 Tab) Promethazine 10 ml ONCE ONCE 10/14/18 DC 10/14/18 HCl/ PO 08:30 08:17 Codeine 10/14/18 08:31 (Phenergan/ Codeine) 8 mg ONCE ONCE 10/14/18 DC 10/14/18 Dexamethasone IM 08:30 08:17 (Decadron) 10/14/18 08:31 Benzonatate 100 mg ONCE ONCE 10/14/18 DC (Tessalon) PO 08:30 10/14/18 08:30 Benzonatate 200 mg ONCE ONCE 10/14/18 DC 10/14/18 (Tessalon) PO 08:30 08:29 10/14/18 08:31 Procedures/MDM ED course includes a thorough examination and history. Medications: Promethazine/codeine, ketorolac and acetaminophen for pain, Tessalon Perles for cough, dexamethasone pharyngeal erythema Imaging: Chest x-ray to rule out pneumonia or other pathologic findings Labs: -- Low suspicion for life-threatening medical emergency. Low suspicion for infectious emergency that requires hospitalization or immediate surgical intervention. Patient afebrile and without antipyretics and hemodynamically stable. Otherwise healthy patient presenting with constellation of symptoms likely representing uncomplicated sinusitis as characterized by history, physical exam findings, radiologic findings. Chest x-ray negative according to radiology report. Due to patient having symptoms for approximately 8 days, will treat sinusitis with Augmentin. No respiratory distress, otherwise relatively well appearing and nontoxic. Upon reassessment, patient with significant decrease and coughing. Patient is not able to speak in clear sentences without having to stop to cough frequently. Patient verbalizes understanding of plan of care and outpatient follow-up. Patient educated on diagnoses, prescriptions, follow-up care, return precautions. Strict return precautions given for worsening condition; questions answered discharge. Disposition for discharge with followup in 2 days with PCP/clinic. Departure Diagnosis: Primary Impression: Bronchitis Additional Impressions: Cough Sinusitis, acute Sinusitis location: unspecified location Recurrence: not specified as recurrent Qualified Codes: J01.90 - Acute sinusitis, unspecified Condition: Stable Patient Instructions: Bronchitis, No Antibiotic (Adult), Allergic Rhinitis, Sinusitis, Abx Tx Referrals: COMMUNITY CLINICS YOU HAVE RECEIVED A MEDICAL SCREENING EXAM AND THE RESULTS INDICATE THAT YOU DO NOT HAVE A CONDITION THAT REQUIRES URGENT TREATMENT IN THE EMERGENCY DEPARTMENT. FURTHER EVALUATION AND TREATMENT OF YOUR CONDITION CAN WAIT UNTIL YOU ARE SEEN IN YOUR DOCTORS OFFICE WITHIN THE NEXT 1-2 DAYS. IT IS YOUR RESPONSIBILITY TO MAKE AN APPOINTMENT FOR FOLOW-UP CARE. IF YOU HAVE A PRIMARY DOCTOR --you should call your primary doctor and schedule an appointment IF YOU DO NOT HAVE A PRIMARY DOCTOR YOU CAN CALL OUR PHYSICIAN REFERRAL HOTLINE AT IF YOU CAN NOT AFFORD TO SEE A PHYSICIAN YOU CAN CHOSE FROM THE FOLLOWING [facility] [address] [facility] [address] [facility]. [facility] [address] [facility] [address] [facility] [address] [facility]. [facility] [address] [facility]. [facility] YOU HAVE RECEIVED A MEDICAL SCREENING EXAM AND THE RESULTS INDICATE THAT YOU DO NOT HAVE A CONDITION THAT REQUIRES URGENT TREATMENT IN THE EMERGENCY DEPARTMENT. FURTHER EVALUATION AND TREATMENT OF YOUR CONDITION CAN WAIT UNTIL YOU ARE SEEN IN YOUR DOCTORS OFFICE WITHIN THE NEXT 1-2 DAYS. IT IS YOUR RESPONSIBILITY TO MAKE AN APPOINTMENT FOR FOLOW-UP CARE. IF YOU HAVE A PRIMARY DOCTOR --you should call your primary doctor and schedule and appointment IF YOU DO NOT HAVE A PRIMARY DOCTOR YOU CAN CALL OUR PHYSICIAN REFERRAL HOTLINE AT . IF YOU CAN NOT AFFORD TO SEE A PHYSICIAN YOU CAN CHOSE FROM THE FOLLOWING [facility]: [facility] [address] [place] [address] [facility] [address] [place] [address] [facility] [address] [place] [address] Additional Instructions: Thank you very much for allowing us to participate in your care. Your health and safety is our top priority at [facility]. It is important to read all discharge instructions and education provided in your discharge packet. Call your primary care doctor TOMORROW for an appointment during the next 2-4 days and bring all the information and medications prescribed. Have prescriptions filled and follow precisely the directions on the label. -Amoxicillin/clavulanic acid as an antibiotic; take this medication every day every 12 hours as listed on your prescription for sinus infection. You must complete the entire course of treatment that is listed on your prescription this is very important because it takes a certain number of days to kill the bacteria that is causing the infection. -Benzonatate is a medication that will help with cough suppression. This medication will not make you drowsy. -Cetirizine as an antihistamine that should not cause drowsiness; take this medication every day for allergy-like symptoms/cough/runny nose. -Naproxen is a anti-inflammatory/pain medication; take this medication daily as prescribed for the next week to help with swelling/inflammation/pain. -Promethazine/codeine is a medication that will help with suppressing the cough as well as an antihistamine. This medication will make you sleepy. DO not take it this medication if you have to operate heavy machinery. If the symptoms get worse and your provider is unavailable, return to the Emergency Department immediately. VIVI LÓPEZ NP Oct 14, 2018 11:23
== END 2018-10-14 10:01 | disposition home or self-care (01) ==
LOC: FTE 06:25
DX: J40 Bronchitis, not specified as acute or chronic (principal); J01.90 Acute sinusitis, unspecified; Z79.82 Long term (current) use of aspirin
CPT/HCPCS: 71046; J1100; J1885; Z7610; 96372